=== PATIENT | male | born 1980 | race Caucasian/White ===

== ENCOUNTER 2021-12-23 00:26 | Emergency (ER) | payer SELFPAY ==
[2021-12-23 00:32] VITALS: BP 146/94; PULSE 68; RESP 20; TEMP 36.4; O2SAT 98
--- NOTE | 2021-12-23 03:38 | PC.NURSE ---
PT CALLED AT APPROX 0240 FROM ED WR TO COME BACK TO MAIN ED; NO ANSWER.
== END 2021-12-23 02:40 | disposition left against medical advice (07) ==
DX: R10.9 Unspecified abdominal pain (principal)
CPT/HCPCS: 99199

== ENCOUNTER 2022-01-18 14:36 | Outpatient (CLI) | payer BC, SELFPAY ==
--- NOTE | ~2022-01-18 | XR_ITS ---
XR abdomen/kub 1V 01/18/2022 14:59 Indication: Renal stones Procedure: KUB Comparison: Comparison to multiple prior studies sequentially, with oldest reviewed study dated 11/2009. Findings: There are left renal stones at the lower pole. Bowel gas pattern is nonobstructive. No acut e osseous abnormality. Impression: 1: Left nephrolithiasis. Reviewed, dictated and finalized at location A. Impression: 1: Left nephrolithiasis.
== END 2022-01-18 14:37 | disposition home or self-care (01) ==
LOC: ANHIMG 14:41
PROVIDERS: Visit Provider Urology
DX: N20.0 Calculus of kidney (principal)
CPT/HCPCS: 74018

== ENCOUNTER 2023-01-10 12:15 | Emergency (ER) | payer BC, SELFPAY ==
[2023-01-10] VITALS (16 sets, daily range): BP systolic 136–163; BP diastolic 98–111; PULSE 76–87; RESP 13–19; TEMP 36.8; O2SAT 95–100
--- NOTE | ~2023-01-10 | CT_ITS ---
EXAMINATION: CT abdomen pelvis wo con DATE: 01/10/2023 16:39 INDICATION: Left flank pain. TECHNIQUE: Computed tomography (CT) of the abdomen and pelvis was performed without intravenous contr ast. Automated exposure control and iterative reconstruction technique were employed. The dose-length product was 1870.31 mGy-cm. COMPARISON: CT abdomen and pelvis 06/08/2009 FINDINGS: The visualized portions of the lung bases demonstrate mild atelectasis. No pleural effusion . The heart size is normal. No pericardial effusion. There is diffuse hepatic steatosis with focal sp aring in the gallbladder fossa. The gallbladder, spleen, pancreas, adrenal glands are normal. There i s a 2 mm stone in right kidney. There are 5 stones in left kidney measuring up to 10 mm. The prostate is mildly enlarged. There is a right inguinal hernia containing fat. There is diverticulosis of the colon without evidence of diverticulitis. There are no dilated loops of bowel. The appendix is normal . There are changes of umbilical hernia repair. There is mild aortic atherosclerosis. There is a righ t inguinal hernia containing fat. There are no pathologically enlarged lymph nodes. There is no free intraperitoneal fluid. There is mild thoracic and lumbar spondylosis. IMPRESSION: 1. Bilateral nonobstructing kidney stones. 2. Right inguinal hernia containing fat. Reviewed, dictated and finalized at location A.
[2023-01-10 13:56] LABS: Appearance Urine Clear (Clear); Bilirubin Urine Negative (Negative); Blood Urine Negative (Negative); Color Urine Yellow (Yellow); Glucose Urine UA Negative (Negative); Ketones Urine Trace mg/dL (Negative); Leukocyte Esterase Ur Negative LEU/UL (Negative); Nitrate Urine Negative (Negative); Protein Urine Negative (Negative); pH Urine 5.5 (5.0-9.0)
[2023-01-10 14:31] LABS: Add Urine Microscopic? NO
[2023-01-10 16:27] LABS: Basophils Percent Auto 0.4 % (0.2-1.2); Eosinophils Percent Auto 0.4 % (0-4.4); Hematocrit 47.9 % (42.0-52.0); Hemoglobin 16.4 g/dL (14.0-18.0); Immature Granulocyte Absolute 0.03 K/mm3 (0.00-0.031); Immature Granulocyte Percent A 0.3 % (0-0.5); Lymphocytes Absolute Auto 3.12 K/mm3 (0.9-3.2); Lymphocytes Percent Auto 28.4 % (18.3-44.2); Mean Corpuscular HGB Conc 34.2 g/dl (32-36); Mean Corpuscular Hemoglobin 31.4 pg (26-34); Mean Corpuscular Volume 91.8 fl (80-100); Mean Platelet Volume 9.8 fl (7.4-10.4); Monocytes Absolute Auto 0.9 K/mm3 (0.1-0.6); Monocytes Percent Auto 8.3 % (2.6-8.5); Neutrophils Absolute Auto 6.9 K/mm3 (1.3-6.7); Neutrophils Percent Auto 62.2 % (45.5-73.1); Platelet Count Result 297 k/mm3 (150-375); Red Blood Count 5.22 M/mm3 (4.6-6.20); Red Cell Distribution Width 12.5 % (11.5-14.5)
[2023-01-10 16:35] LABS: Alanine Aminotransferase 52 U/L (6-50); Albumin Level 4.8 g/dL (3.5-5.1); Alkaline Phosphatase 99 U/L (38-126); Anion Gap 10 mmol/L (8-16); Aspartate Amino Transferase 43 U/L (17-59); Bilirubin,Total 0.6 mg/dL (0.2-1.3); Blood Urea Nitrogen 15 mg/dL (9-20); Calcium 9.2 mg/dL (8.4-10.2); Carbon Dioxide 29 mmol/L (22-30); Chloride 101 mmol/L (98-107); Estimated CRCL calculation 158 ml/min; Estimated Glomerular Filt Rate > 60; Glucose 112 mg/dL (65-110); Potassium 3.9 mmol/L (3.4-5.0); Sodium 140 mmol/L (137-145)
--- NOTE | 2023-01-10 16:40 | ED.ABDPAIN ---
HPI - Abdominal Pain General Chief Complaint: Abdominal Pain Stated Complaint: abdominal pain Time Seen by Provider: 01/10/23 15:54 Source: patient Mode of arrival: ambulatory Limitations: no limitations History of Present Illness HPI narrative: This is a 42 year old male that presents to the ER for left flank pain. Ongoing today. Reports longstanding history of kidney stones. Reports this pain feels similar. Denies fever, vomiting, dysuria, hematuria. Related Data Allergies Allergy/AdvReac Type Severity Reaction Status Date / Time peanut Allergy Mild Verified 08/28/09 07:23 Review of Systems Review of Systems: CONSTITUTIONAL: Denies fever GASTROINTESTINAL: Reports abdominal/flank pain. Denies nausea, vomiting GENITOURINARY: Denies dysuria or hematuria. All systems reviewed & are unremarkable except as noted in HPI and below PMFSH Past Medical History Medical History (Updated 01/10/23 @ 18:49 by Ernestine Fountain PA-C) History of kidney stones Social History Social History (Updated 01/10/23 @ 16:43 by Ernestine Fountain PA-C) Smoking status: Never smoker Exam Narrative: GENERAL: Well-appearing, well-nourished, and in no acute distress. HEAD: Normocephalic, atraumatic. EYES: EOMI. CHEST: Clear to auscultation. No respiratory distress. No wheezes rales or rhonchi HEART: Regular rate and rhythm. No murmur heard. Normal peripheral pulses. ABDOMEN: Soft, nontender, nondistended, normal active bowel sounds. No CVA tenderness EXTREMITIES: Normal range of motion. No edema. SKIN: Warm, dry, no rash. NEURO: No focal deficits. Alert and oriented x3. PSYCH: Normal mood and affect Course Course Emergency Course: Patient was updated on workup and agrees with plan of care Vital Signs Vital signs: Vital Signs Temperature 98.3 F 01/10/23 13:07 Pulse Rate 87 01/10/23 13:07 Respiratory Rate 18 01/10/23 13:07 Blood Pressure 156/98 H 01/10/23 13:07 Pulse Oximetry 98 01/10/23 13:07 Oxygen Delivery Room Air 01/10/23 13:07 Temperature 98.3 F 01/10/23 13:07 Pulse Rate 83 01/10/23 17:47 Respiratory Rate 15 01/10/23 17:47 Blood Pressure 163/102 H 01/10/23 17:31 Pulse Oximetry 98 01/10/23 17:47 Oxygen Delivery Room Air 01/10/23 13:07 MDM - Abdominal Pain MDM Narrative Medical decision making narrative: Patient presents to the ER for left flank pain ongoing today. Reporting history of kidney stones. He is afebrile and nontoxic appearing. His vitals are stable. CBC with mild leukocytosis to 11. Metabolic panel without concerning findings. UA without evidence of infection. CT scan of the abdomen and pelvis shows bilateral nonobstructing kidney stones. Patient was updated on work-up. Instructed to have follow-up with his urologist. He was given warnings to return to the ER Differential Diagnosis Differential diagnosis: Likely calculus of kidney, diverticulitis and other (UTI) Lab Data Attestation: I reviewed the patient's lab results. 01/10/23 16:20 01/10/23 16:20 Labs: Lab Results 01/10/23 01/10/23 Range/Units 13:37 16:20 WBC 11.0 H (4.5-10.0) K/mm3 RBC 5.22 (4.6-6.20) M/mm3 Hgb 16.4 (14.0-18.0) g/dL Hct 47.9 (42.0-52.0) % MCV 91.8 (80-100) fl MCH 31.4 (26-34) pg MCHC 34.2 (32-36) g/dl RDW 12.5 (11.5-14.5) % Plt Count 297 (150-375) k/mm3 MPV 9.8 (7.4-10.4) fl Immature Gran % (Auto) 0.3 (0-0.5) % Neut % (Auto) 62.2 (45.5-73.1) % Lymph % (Auto) 28.4 (18.3-44.2) % Morton % (Auto) 8.3 (2.6-8.5) % Eos % (Auto) 0.4 (0-4.4) % Baso % (Auto) 0.4 (0.2-1.2) % Lymph # (Auto) 3.12 (0.9-3.2) K/mm3 Morton # (Auto) 0.9 H (0.1-0.6) K/mm3 Eos # (Auto) 0.0 (0-0.3) K/mm3 Baso # (Auto) 0.0 (0.0-0.1) K/mm3 Abs Immat Gran (auto) 0.03 (0.00-0.031) K/mm3 Absolute Neuts (auto) 6.9 H (1.3-6.7) K/mm3 Absolute Nucleated RBC 0.0 (0.0-0.012) K/mm3 Nucleated RBC %
[2023-01-10] MEDS: ONDANSETRON INJ 4 MG/2 ML VIAL IV PUSH (16:58)
[2023-01-10] MEDS: SODIUM CHLORIDE 0.9% IV 1,000 ML 999 ML IV CONT (16:58)
[2023-01-10] MEDS: MORPHINE SULFATE (*CRX) 2 MG/ML INJ IV PUSH (16:58)
== END 2023-01-10 19:07 | disposition home or self-care (01) ==
PROVIDERS: Emergency Medicine; Emergency Provider Physician Assistant
DX: R10.9 Unspecified abdominal pain (principal); Z87.442 Personal history of urinary calculi
CPT/HCPCS: 36415; 74176; 80053; 81003; 85025; 96361; 96374; 96375; 99284; J2270; J2405; J7030

== ENCOUNTER 2024-08-02 07:17 | Emergency (ER) | payer SELFPAY ==
--- NOTE | ~2024-08-02 | CT_ITS ---
CLINICAL INDICATION: Left flank pain COMPARISON: 01/10/2023. TECHNIQUE: Multiple contiguous axial images of the abdomen and pelvis were performed without the admi nistration of intravenous contrast The dose-length product (DLP) was 759.99 mGy-cm. Automated exposure control and iterative reconstruction technique were employed. FINDINGS/OBSERVATIONS: Visualized lower thorax: The bilateral lung bases are clear. The heart is of normal size, without pericardial effusion. Small hiatal hernia is present. Liver: The liver demonstrates homogeneous attenuation and is not enlarged. Gallbladder and biliary system: The gallbladder is only minimally distended, and otherwise unremarkable. Pancreas: Limited evaluation of the pancreas secondary to the lack of intravenous contrast. Spleen: The spleen demonstrates homogeneous attenuation and is not enlarged. Kidneys: Redemonstration of multiple stones within the left kidney. Within the upper pole, are 2 separate stones, together measuring 8.5 mm (previously measuring 7.2 mm) . 2 stones within the interpolar region measuring approximately 5 mm each. Within the lower pole of the left kidney is a trilobulated group of stones, measuring 11.5 x 8.9 mm. No left-sided hydronephrosis is present. Within the right kidney, is a single stone within the lower pole measuring approximately 4 mm, unchan ged from prior. No right-sided hydronephrosis or hydroureter are present. Adrenal glands: Unremarkable. Gastrointestinal tract: Trace fecal stasis within the colon. Appendix: The air-filled appendix is of normal caliber (axial series, images 119 through 138) Vasculature: Unremarkable. Lymph nodes: Limited evaluation without intravenous contrast. Pelvic structures: The bladder is distended, and otherwise unremarkable. The prostate gland is not enlarged. Body wall and musculoskeletal: Gortex patch repair of a umbilical hernia is appreciated. No significant degenerative disease within the lower thoracic or lumbosacral spine. IMPRESSION: Multiple nonobstructing stones within the bilateral kidneys (as detailed above) without obstructive u ropathy. Reviewed, dictated and finalized at location A. IMPRESSION: Multiple nonobstructing stones within the bilateral kidneys (as detailed above) without obstructive uropathy.
--- NOTE | ~2024-08-02 | XR_ITS ---
XR abdomen/kub 1V 08/02/2024 08:18 Indication: Kidney stones Procedure: KUB Comparison: 01/18/2022 Findings: There are multiple left renal stones. Bowel gas pattern nonobstructive. There are calcifica tions in the pelvis. New since prior examination. Consider bladder stones. No acute osseous abnormali ty. Impression: 1: Left nephrolithiasis. 2: Possible bladder stones. Reviewed, dictated and finalized at location A. Impression: 1: Left nephrolithiasis. 2: Possible bladder stones.
--- OUTSIDE RECORDS SUMMARY | 2024-08-02 07:20 | XMS_ITS | Encounter Summary ---
Author Organization [facility] Address [address] [place] [address] Phone Care Team Providers Care Devulcanizer Loader Name Role Phone Ponce Garcia Primary Care Provider Reason for Visit * Reason Comments Medication Refill Encounter Details Date Type Department Care Team (Late st Contact Info) Description 10/03/2023 Refill [facility] - Primary Care - [place] [address] [place] [address] Ponce Garcia PAC [address] [place] [address] Medication Refill Social History Tobacco Use Types Packs/Day Years Used Date Smoking Tobacco: Never Smokeless Tobacco: Never Alcohol Use Standard Drinks/Week Comments Yes 0 (1 standard drink = 0.6 oz pur e alcohol) rarely-Personal choice [facility] Utilities Answer Date Recorded In the past 12 months has e electric, gas, oil, or water company threatened to shut off services in your home? No 09/15/2023 Social Connection and Isolat ion Panel [NHANES] Answer Date Recorded In a typical week, how many times do you talk on the phone with family, friends, or neighbors? More than three times a week 09/15/2023 How often do you get togethe r with friends or relatives? Once a week 09/15/2023 How often do you attend chur ch or pentecostal services? 1 to 4 times per year 09/15/2023 Do you belong to any clubs o r organizations such as yarsani groups, unions, fraternal or athletic groups, or school groups? Yes 09/15/2023 How often do you attend meet ings of the clubs or organizations you belong to? 1 to 4 times per year 09/15/2023 Are you , , di vorced, , never , or living with a partner? Living with partner 09/15/2023 AUDIT-C Answer Date Recorded Q1: How often do you have a drink containing alc ohol? Monthly or less 09/15/2023 Q2: How many drinks containi ng alcohol do you have on a typical day when you are drinking? 1 or 2 09/15/2023 Q3: How often do you have si x or more drinks on one occasion? Less than monthly 09/15/2023 Overall Financial Resource Strain (CARDIA) Answe r Date Recorded How hard is it for you to pa y for the very basics like food, housing, medical care, and heating? Patient declined 09/15/2023 PHQ-2 Answer Date Recorded Total Score - Questions 1-9 0 08/30 Hunger Vital Sign Answer Date Recorded Within the past 12 months, y ou worried that your food would run out before you got the money to buy more. Never true 09/15/19 24 Within the past 12 months, t he food you bought just didn't last and you didn't have money to get more. Never true 09/15/2023 PRAPARE - Transportation Answer Date Re corded In the past 12 months, has l ack of transportation kept you from medical appointments or from getting medications? No 08/30 In the past 12 months, has l ack of transportation kept you from meetings, work, or from getting things needed for daily living? No 09/15/2023 Housing Stability Vital Sign Answer Marc e Recorded In the last 12 months, was t here a time when you were not able to pay the mortgage or rent on time? No 09/15/2023 In the last 12 months, how many places have you lived? 1 09/15/2023 In the last 12 months, was t here a time when you did not have a steady place to sleep or slept in a penitentiary (including now)? No 09/15/2023 Education Answer Date Recorded What is the highest level of school you have completed or the highest degree you have received? 12th grade 07/31/2021 Sexually Active Control Partners Comments Yes Female Sex and Gender Information Value Date Recorded Sex Assigned at Not on file Legal Sex Male 7:35 PM CDT Gender Identity Not on file Sexual Orientation Straight 03/21/2024 2: 18 PM EMS MANAGER documented as of this encounter Miscellaneous Notes * Telephone Encounter - Ponce Garcia PAC - 10/03/2023 9:55 AM CDT Refill approved. * Telephone Encounter - Robert Dumas RN - 10/03/2023 9:45 AM CDT Medication failed the protocol, provider to review and approve the medication order if appropriate. Requested Prescriptions Pending Prescriptions Disp Refills metaxalone (SKELAXIN) 800 MG Tablet [Pharmacy Med Name: METAXALONE 800MG TABLET] 42 Tablet 0 Sig: TAKE 1 TABLET BY MOUTH 3 TIMES DAILY NEEDED FOR MUSCLE SPASMS OR PAIN. Not Delegated - Muscle Relaxants Protocol Failed - 10/03/2023 9:30 AM Failed - This refill cannot be delegated Passed - Visit with relevant provider in past 12 months or upcoming 90 days Recent Visits Date Type Provider Dept 09/16/23 Office Visit Ponce Garcia PAC [facility] Showing recent visits within past 365 days and meeting all other requirements Future Appointments No visits were found meeting these conditions. Showing future appointments within next 90 days and meeting all other requirements documented in this encounter Plan of Treatment Upcoming Encounters Date Type Department Care Team (Late st Contact Info) Description 10/12/2024 4:30 PM CDT Office Visit [facility] - Primary Care - [place] [id number] [place] [address] Ponce Garcia PAC [address] [place] [address] documented as of this encounter Goals Goal Patient Goal Type Associated Problems Recent Progress Patient-Stated? Author I would like to have lower anxiety Behavioral Health On track(2022 3:41 PM CDT) Yes Mireya Wright, HAND LAMINATOR Note: Goal/Objective: Decreaseanxiet. Anticipated Time Frame for Goal Completion: 8 sessions Goal Reviewed with: patient Readiness to change: Making a change Department associated with goal: [facility] Steps to achieve goal: will attend counseling/psychotherapy sessions at least once monthly, at least 6 sessions, utilizing individual and/or group sessions to express thoughts and feelings. to identify, verbalize and process at least three contributing factors/triggers to anxiety and depression. to identify and verbalize at least three actions/skills to prevent and/or cope with anxiety and depression. to put into action, at least one time weekly, for one month, an action/skill to prevent and or cope with anxiety and depression. Learn ADHD strategies Behavioral Health On track(2022 3:41 PM CDT) No Amee Plaza, HAND LAMINATOR Note: Learn strategies Implement strategies an report back during sessions Medication adherence. documented as of this encounter Visit Diagnoses Diagnosis Chronic right-sided low back pain, unspecified whether sciatica present documented in this encounter Additional Health Concerns Infection Onset Date Last Indicated Resolved Time Respiratory Rule-Out 04/02/2024 04/02/2024 024 12:07 PM EMS MANAGER COVID - 19 04/02/2024 04/02/2024 04/02/2024 12:0 4 PM EMS MANAGER Assessment Noted Time PHQ-9 Depression Total Score: 0 09/16/19 24 4:15 PM CDT documented as of this encounter Care Teams Devulcanizer Loader Relationship Specialty Start Date End Date oPnce aGrcia PAC [address] [place] [address] PCP - General Physician Applications Programmer 09/20/22 documented as of this encounter
--- OUTSIDE RECORDS SUMMARY | 2024-08-02 07:20 | XMS_ITS | Encounter Summary ---
Author Organization [facility] Address [address] [place] [address] Phone Care Team Providers Care Vessel Operator Name Role Phone Ponce Garcia Primary Care Provider Reason for Visit * Reason Comments Medication Refill Encounter Details Date Type Department Care Team (Late st Contact Info) Description 07/16/2023 Refill [facility] - Primary Care - [place] [address] [place] [address] Ponce Garcia PAC [address] [place] [address] Medication Refill Social History Tobacco Use Types Packs/Day Years Used Date Smoking Tobacco: Never Smokeless Tobacco: Never Alcohol Use Standard Drinks/Week Comments Yes 0 (1 standard drink = 0.6 oz pur e alcohol) rarely-Personal choice PHQ-2 Answer Date Recorded Total Score - Questions 1-9 8 06/2021 Education Answer Date Recorded What is the highest level of school you have completed or the highest degree you have received? 12th grade 07/31/2021 Sexually Active Control Partners Comments Yes Female Sex and Gender Information Value Date Recorded Sex Assigned at Not on file Legal Sex Male 7:35 PM CDT Gender Identity Not on file Sexual Orientation Straight 03/21/2024 2: 18 PM RAG SHREDDER documented as of this encounter Miscellaneous Notes * Telephone Encounter - Althea Vazquez, RN - 07/18/2023 9:40 AM CDT Medication(s) refilled and signed per [facility] Chronic Medication Refill Standing Order for Pediatricand Adult Patients. Requested Prescriptions Pending Prescriptions Disp Refills montelukast (SINGULAIR) 10 MG Tablet [Pharmacy Med Name: MONTELUKAST SODIUM 10MG TABLET] 90 Tablet 0 Sig: TAKE 1 TABLET BY MOUTH EVERY EVENING. Leukotriene Inhibitors Protocol Passed - 07/16/2023 9:18 AM Passed - Visit with relevant provider in past 12 months or upcoming 90 days Recent Visits Date Type Provider Dept 09/20/22 Office Visit Ponce Garcia PAC [facility] Showing recent visits within past 365 days and meeting all other requirements Future Appointments Date Type Provider Dept 09/16/23 Appointment Ponce Garcia PAC [facility] Showing future appointments within next 90 days and meeting all other requirements documented in this encounter Plan of Treatment Upcoming Encounters Date Type Department Care Team (Late st Contact Info) Description 10/12/2024 4:30 PM CDT Office Visit [facility] - Primary Care - [place] [address] [place] [id number] Ponce Garcia PAC [address] [place] [address] documented as of this encounter Goals Goal Patient Goal Type Associated Problems Recent Progress Patient-Stated? Author I would like to have lower anxiety Behavioral Health On track(2022 3:41 PM CDT) Yes Mireya Wright, DISTANCE LEARNING TECHNICIAN Note: Goal/Objective: Decreaseanxiet. Anticipated Time Frame for Goal Completion: 8 sessions Goal Reviewed with: patient Readiness to change: Making a change Department associated with goal: [facility] Steps to achieve goal: [...] track(2022 3:41 PM CDT) No Amee Plaza, DISTANCE LEARNING TECHNICIAN Note: Learn strategies Implement strategies an report back during sessions Medication adherence. documented as of this encounter Visit Diagnoses Diagnosis Mild intermittent extrinsic asthma without complication documented in this encounter Additional Health Concerns Infection Onset Date Last Indicated Resolved Time Respiratory Rule-Out 04/02/2024 04/02/2024 024 12:07 PM RAG SHREDDER COVID - 19 04/02/2024 04/02/2024 04/02/2024 12:0 4 PM RAG SHREDDER Assessment Noted Time PHQ-9 Depression Total Score: 8 06/04/19 22 3:00 PM RAG SHREDDER documented as of this encounter Care Teams Vessel Operator Relationship Specialty Start Date End Date Ponce Garcia, PAC [address] [place] [phone] PCP - General Physician Die Maker Electronic 09/20/22 documented as of this encounter
--- OUTSIDE RECORDS SUMMARY | 2024-08-02 07:20 | XMS_ITS | Encounter Summary ---
Author Organization [facility] Address [address] [place] [address] Phone Care Team Providers Care Utility Inspector Name Role Phone Ponce Garcia Primary Care Provider Reason for Visit * Reason Comments Medication Refill Encounter Details Date Type Department Care Team (Late st Contact Info) Description 08/17/2023 Refill [facility] - Primary Care - [place] [address] [place] [address] Ponce Garcia PAC [address] [place] [address] Medication Refill Social History Tobacco [...] Sexual Orientation Straight 03/21/2024 2: 18 PM INDUSTRIAL/ORGANIZATIONAL PSYCHOLOGIST documented as of this encounter Miscellaneous Notes * Telephone Encounter - Ponce Garcia PAC - 08/17/2023 12:38 PM CDT Refill approved. * Telephone Encounter - Mindi Arambula RN - 08/17/2023 8:56 AM CDT Medication failed the protocol, provider to review and approve the medication order if appropriate. Requested Prescriptions Pending Prescriptions Disp Refills metaxalone (SKELAXIN) 800 MG Tablet [Pharmacy Med Name: METAXALONE 800MG TABLET] 42 Tablet 0 Sig: TAKE 1 TABLET BY MOUTH 3 TIMES DAILY NEEDED FOR MUSCLE SPASMS OR PAIN. Not Delegated - Muscle Relaxants Protocol Failed - 08/17/2023 8:56 AM Failed - This refill cannot be delegated Passed - Visit with relevant provider in past 12 months or upcoming 90 days Recent Visits Date Type Provider Dept 09/20/22 Office Visit Ponce Garcia PAC [facility] Showing recent visits within past 365 days and meeting all other requirements Future Appointments Date Type Provider Dept 09/16/23 Appointment Ponce Garcia PAC [facility] Showing future appointments within next 90 days and meeting all other requirements documented in this encounter Plan of Treatment Upcoming Encounters Date Type Department Care Team (Late st Contact Info) Description 10/12/2024 4:30 PM CDT Office Visit [facility] - Primary Care - [address] [place] [address] Ponce Garcia PAC [address] [place] [address] documented as of this encounter Goals Goal Patient Goal Type Associated Problems Recent Progress Patient-Stated? Author I would like to have lower anxiety Behavioral Health On track(2022 3:41 PM CDT) Yes Mireya Wright, MOISTURE METER OPERATOR Note: Goal/Objective: Decreaseanxiet. Anticipated Time Frame for Goal Completion: 8 sessions Goal Reviewed with: patient Readiness to change: Making a change Department associated with goal: [facility] Steps to achieve goal: [...] track(2022 3:41 PM CDT) No Amee Plaza, MOISTURE METER OPERATOR Note: Learn strategies Implement strategies an report back during sessions Medication adherence. documented as of this encounter Visit Diagnoses Diagnosis Chronic right-sided low back pain, unspecified whether sciatica present documented in this encounter Additional Health Concerns Infection Onset Date Last Indicated Resolved Time Respiratory Rule-Out 04/02/2024 04/02/2024 024 12:07 PM INDUSTRIAL/ORGANIZATIONAL PSYCHOLOGIST COVID - 19 04/02/2024 04/02/2024 04/02/2024 12:0 4 PM INDUSTRIAL/ORGANIZATIONAL PSYCHOLOGIST Assessment Noted Time PHQ-9 Depression Total Score: 8 06/04/19 22 3:00 PM INDUSTRIAL/ORGANIZATIONAL PSYCHOLOGIST documented as of this encounter Care Teams Utility Inspector Relationship Specialty Start Date End Date Ponce Garcia, PAC [address] [place] [address] PCP - General Physician Office Clinician 09/20/22 documented as of this encounter
--- OUTSIDE RECORDS SUMMARY | 2024-08-02 07:20 | XMS_ITS | Encounter Summary ---
Author Organization [facility] Address [address] [place] [address] Phone Care Team Providers Care Light Technician Name Role Phone Ponce Garcia Primary Care Provider Reason for Visit * Reason Comments Medication Refill Encounter Details Date Type Department Care Team (Late st Contact Info) Description 09/29/2023 Refill [facility] - Primary Care - [place] [address] [place] [address] Ponce Garcia PAC [address] [place] [address] Medication Refill Social History Tobacco Use Types Packs/Day Years Used Date Smoking Tobacco: Never Smokeless Tobacco: Never Alcohol Use Standard Drinks/Week Comments Yes 0 (1 standard drink = 0.6 oz pur e alcohol) rarely-Personal choice [facility] Utilities Answer Date Recorded In the [...] any clubs o r organizations such as sikh groups, unions, fraternal or athletic groups, or [...] place to sleep or slept in a long term (including now)? No 09/15/2023 Education Answer Date [...] Sexual Orientation Straight 03/21/2024 2: 18 PM SECURITY SYSTEM INSTALLER documented as of this encounter Miscellaneous Notes * Telephone Encounter - Ponce Garcia PAC - 09/29/2023 8:58 AM CDT Refill approved. * Telephone Encounter - Robert Dumas RN - 09/29/2023 8:21 AM CDT Medication failed the protocol, provider to review and approve the medication order if appropriate. Requested Prescriptions Pending Prescriptions Disp Refills atomoxetine (STRATTERA) 25 MG Capsule [Pharmacy Med Name: ATOMOXETINE HYDROCHLORIDE 25MG CAPSULE] 90 Capsule 2 Sig: TAKE 1 CAPSULE BY MOUTH DAILY. Not Delegated - Off Protocol Failed - 09/29/2023 8:20 AM Failed - This refill cannot be delegated Passed - Visit with relevant provider in past 12 months or upcoming 90 days Recent Visits Date Type Provider Dept 09/16/23 Office Visit Ponce Garcia PAC [facility] Showing recent visits within past 365 days and meeting all other requirements Future Appointments No visits were found meeting these conditions. Showing future appointments within next 90 days and meeting all other requirements documented in this encounter Plan of Treatment Upcoming Encounters Date Type Department Care Team (Late st Contact Info) Description 10/12/2024 4:30 PM CDT Office Visit [facility] - Primary Care - [place] [address] [place] [address] Ponce Garcia, PAC [address] [place] [address] documented as of this encounter Goals Goal Patient Goal Type Associated Problems Recent Progress Patient-Stated? Author I would like to have lower anxiety Behavioral Health On track(2022 3:41 PM CDT) Yes Mireya Wright, MOLDER HELPER Note: Goal/Objective: Decreaseanxiet. Anticipated Time Frame for Goal Completion: 8 sessions Goal Reviewed with: patient Readiness to change: Making a change Department associated with goal: [facility] Steps to achieve goal: [...] track(2022 3:41 PM CDT) No Amee Plaza, MOLDER HELPER Note: Learn strategies Implement strategies an report back during sessions Medication adherence. documented as of this encounter Visit Diagnoses Not on filedocumented in this encounter Additional Health Concerns Infection Onset Date Last Indicated Resolved Time Respiratory Rule-Out 04/02/2024 04/02/2024 024 12:07 PM SECURITY SYSTEM INSTALLER COVID - 19 04/02/2024 04/02/2024 04/02/2024 12:0 4 PM SECURITY SYSTEM INSTALLER Assessment Noted Time PHQ-9 Depression Total Score: 0 09/16/19 24 4:15 PM CDT documented as of this encounter Care Teams Light Technician Relationship Specialty Start Date End Date Ponce Garcia, PAC [address] [place] [address] PCP - General Physician Services Clerk 09/20/22 documented as of this encounter
--- OUTSIDE RECORDS SUMMARY | 2024-08-02 07:20 | XMS_ITS | Encounter Summary ---
Author Organization [facility] Address [address] [place] [address] Phone Care Team Providers Care Employment Program Representative Name Role Phone Ponce Garcia Primary Care Provider [phone] Reason for Visit * Reason Comments Medication Refill Encounter Details Date Type Department Care Team (Late st Contact Info) Description 07/13/2023 Refill [facility] - Primary Care - [place] [address] [place] [address] Ponce Garcia PAC [address] [place] [address] Medication Refill Social History Tobacco [...] Sexual Orientation Straight 03/21/2024 2: 18 PM RAILWAY SIGNAL ELECTRICIAN documented as of this encounter Miscellaneous Notes * Telephone Encounter - Ponce Garcia PAC - 07/13/2023 11:19 AM CDT Refill approved. * Telephone Encounter - Robert Dumas RN - 07/13/2023 11:07 AM CDT Medication failed the protocol, provider to review and approve the medication order if appropriate. Requested Prescriptions Pending Prescriptions Disp Refills DULoxetine (CYMBALTA) [address] Particles [Pharmacy Med Name: DULOXETINE HYDROCHLORIDE 20MG CAPSULE DR PART] 90 Capsule 0 Sig: TAKE 1 CAPSULE BY MOUTH NIGHTLY. SNRI (6 Month Refill Only) Protocol Failed - 07/13/2023 11:01 AM Failed - Has an encounter in the past 6 months with a depression or anxiety visit diagnosis Passed - Visit with relevant provider in past 6 months or upcoming 90 days Recent Visits No visits were found meeting these conditions. Showing recent visits within past 182 days and meeting all other requirements Future Appointments Date Type Provider Dept 09/16/23 Appointment Ponce Garcia PAC [facility] Showing future appointments within next 90 days and meeting all other requirements Passed - Patient has established therapy with Serotonin-Norepinephrine Reuptake Inhibitors for at least 6 months documented in this encounter Plan of Treatment Upcoming Encounters Date Type Department Care Team (Late st Contact Info) Description 10/12/2024 4:30 PM CDT Office Visit [facility] - Primary Care - [place] [address] [place] [address] Ponce Garcia PAC [address] [place] [address] documented as of this encounter Goals Goal Patient Goal Type Associated Problems Recent Progress Patient-Stated? Author I would like to have lower anxiety Behavioral Health On track(2022 3:41 PM CDT) Yes Mireya Wright, GROUP HOME COUNSELOR Note: Goal/Objective: Decreaseanxiet. Anticipated Time Frame for Goal Completion: 8 sessions Goal Reviewed with: patient Readiness to change: Making a change Department associated with goal: [facility] Steps to achieve [...] track(2022 3:41 PM CDT) No Amee Plaza, GROUP HOME COUNSELOR Note: Learn strategies Implement strategies an report back during sessions Medication adherence. documented as of this encounter Visit Diagnoses Diagnosis Generalized anxiety disorder documented in this encounter Additional Health Concerns Infection Onset Date Last Indicated Resolved Time Respiratory Rule-Out 04/02/2024 04/02/2024 024 12:07 PM RAILWAY SIGNAL ELECTRICIAN COVID - 19 04/02/2024 04/02/2024 04/02/2024 12:0 4 PM RAILWAY SIGNAL ELECTRICIAN Assessment Noted Time PHQ-9 Depression Total Score: 8 06/04/19 22 3:00 PM RAILWAY SIGNAL ELECTRICIAN documented as of this encounter Care Teams Employment Program Representative Relationship Specialty Start Date End Date Ponce Garcia, PAC [address] [place] [address] PCP - General Physician Plasterer Rough 09/20/22 documented as of this encounter
--- OUTSIDE RECORDS SUMMARY | 2024-08-02 07:20 | XMS_ITS | Encounter Summary ---
Author Organization [facility] Address [address] [place] [address] Phone Care Team Providers Care Crime Scene Examiner Name Role Phone Ponce Garcia Primary Care Provider [phone] Reason for Visit * Reason Comments Medication Refill Encounter Details Date Type Department Care Team (Late st Contact Info) Description 07/01/2023 Refill [facility] - Primary Care - [place] [address] [place] [address] Ponce Garcia PAC [address] [place] [address] Medication Refill Social History Tobacco [...] Sexual Orientation Straight 03/21/2024 2: 18 PM CUSTOMER TRAINER documented as of this encounter Miscellaneous Notes * Telephone Encounter - Ponce Garcia PAC - 07/01/2023 9:39 AM CST Refill approved. OMER TRAINER * Telephone Encounter - Robert Dumas RN - 07/01/2023 9:23 AM CST Medication failed the protocol, provider to review and approve the medication order if appropriate. Requested Prescriptions Pending Prescriptions Disp Refills metaxalone (SKELAXIN) 800 MG Tablet [Pharmacy Med Name: METAXALONE 800MG TABLET] 42 Tablet 0 Sig: TAKE 1 TABLET BY MOUTH 3 TIMES DAILY NEEDED FOR MUSCLE SPASMS OR PAIN. Not Delegated - Muscle Relaxants Protocol Failed - 07/01/2023 8:47 AM Failed - This refill cannot be delegated Passed - Visit with relevant provider in past 12 months or upcoming 90 days Recent Visits Date Type Provider Dept 09/20/22 Office Visit Ponce Garcia PAC [facility] Showing recent visits within past 365 days and meeting all other requirements Future Appointments No visits were found meeting these conditions. Showing future appointments within next 90 days and meeting all other requirements OMER TRAINER documented in this encounter Plan of Treatment Upcoming Encounters Date Type Department Care Team (Late st Contact Info) Description 10/12/2024 4:30 PM CDT Office Visit [facility] - Primary Care - [place] [address] [place] [address] Ponce Garcia PAC [address] [place] [address] documented as of this encounter Goals Goal Patient Goal Type Associated Problems Recent Progress Patient-Stated? Author I would like to have lower anxiety Behavioral Health On track(2022 3:41 PM CDT) Yes Mireya Wright, BOX BUILDER Note: Goal/Objective: Decreaseanxiet. Anticipated Time Frame for Goal Completion: 8 sessions Goal Reviewed with: patient Readiness to change: Making a change Department associated with goal: [facility] Steps to achieve [...] track(2022 3:41 PM CDT) No Amee Plaza, BOX BUILDER Note: Learn strategies Implement strategies an report back during sessions Medication adherence. documented as of this encounter Visit Diagnoses Diagnosis Chronic right-sided low back pain, unspecified whether sciatica present documented in this encounter Additional Health Concerns Infection Onset Date Last Indicated Resolved Time Respiratory Rule-Out 04/02/2024 04/02/2024 024 12:07 PM CUSTOMER TRAINER COVID - 19 04/02/2024 04/02/2024 04/02/2024 12:0 4 PM CUSTOMER TRAINER Assessment Noted Time PHQ-9 Depression Total Score: 8 06/04/19 22 3:00 PM CUSTOMER TRAINER documented as of this encounter Care Teams Crime Scene Examiner Relationship Specialty Start Date End Date Ponce Garcia, PAC [address] [place] [id number] PCP - General Physician Fruit Harvest Worker 09/20/22 documented as of this encounter
--- OUTSIDE RECORDS SUMMARY | 2024-08-02 07:20 | XMS_ITS | Encounter Summary ---
Author Organization [facility] Address [address] [place] [address] Phone Care Team Providers Care Land Law Examiner Name Role Phone Yamile Mallory APRN, CNP Primary Care Provider Ponce Garcia Primary Care Provider [phone] Reason for Visit * Reason Comments Medication Refill Encounter Details Date Type Department Care Team (Late st Contact Info) Description 09/13/2022 Refill [facility] - Primary Care - [place] [address] [place] [address] Ponce Garcia PAC [address] [place] [address] Medication Refill Social History Tobacco [...] Sexual Orientation Straight 03/21/2024 2: 18 PM DISPATCHER CHIEF OIL COVID-19 Exposure Response Date Recorded In the last 10 days, have yo u been in contact with someone who was confirmed or suspected to have Coronavirus/COVID-19? No / Unsure 09/14/2022 3:16 PM CDT documented as of this encounter Miscellaneous Notes * Telephone Encounter - Ponce Garcia PAC - 09/13/2022 10:28 AM CDT Rx request approved. * Telephone Encounter - Renée Kaufman RN - 09/13/2022 8:50 AM CDT Patient set up a [facility] appointment with Ponce for 09/20/22. Medication failed the protocol, provider to review and approve the medication order if appropriate. Requested Prescriptions Pending Prescriptions Disp Refills metaxalone (SKELAXIN) 800 MG Tablet [Pharmacy Med Name: METAXALONE 800MG TABLET] 42 Tablet 0 Sig: TAKE 1 TABLET BY MOUTH 3 TIMES DAILY NEEDED FOR MUSCLE SPASMS OR PAIN. Not Delegated - Muscle Relaxants Protocol Failed - 09/13/2022 8:25 AM Failed - This refill cannot be delegated Passed - Visit with relevant provider in past 12 months or upcoming 90 days Recent Visits Date Type Provider Dept 11/06/21 Telemedicine Yamile Mallory APRN, HERBICIDE SERVICE SALES REPRESENTATIVE [facility] 09/23/21 Office Visit Yamile Mallory APRN, HERBICIDE SERVICE SALES REPRESENTATIVE [facility] Showing recent visits within past 365 days and meeting all other requirements Future Appointments Date Type Provider Dept 09/20/22 Appointment Ponce Garcia PAC [facility] Showing future appointments within next 90 days and meeting all other requirements documented in this encounter Plan of Treatment Upcoming Encounters Date Type Department Care Team (Late st Contact Info) Description 10/12/2024 4:30 PM CDT Office Visit [facility] - Primary Care - [place] [address] [place] [address] Ponce Garcia, BRANDIE [address] [place] [address] documented as of this encounter Goals Goal Patient Goal Type Associated Problems Recent Progress Patient-Stated? Author I would like to have lower anxiety Behavioral Health On track(2022 3:41 PM CDT) Yes Mireya Wright, ANIMAL BEHAVIOURIST Note: Goal/Objective: Decreaseanxiet. Anticipated Time Frame for Goal Completion: 8 sessions Goal Reviewed with: patient Readiness to change: Making a change Department associated with goal: [facility] Steps to achieve [...] track(2022 3:41 PM CDT) No Amee Plaza, ANIMAL BEHAVIOURIST Note: Learn strategies Implement strategies an report back during sessions Medication adherence. documented as of this encounter Visit Diagnoses Diagnosis Chronic right-sided low back pain, unspecified whether sciatica present documented in this encounter Additional Health Concerns Infection Onset Date Last Indicated Resolved Time Respiratory Rule-Out 04/02/2024 04/02/2024 024 12:07 PM DISPATCHER CHIEF OIL COVID - 19 04/02/2024 04/02/2024 04/02/2024 12:0 4 PM DISPATCHER CHIEF OIL Assessment Noted Time PHQ-9 Depression Total Score: 8 06/04/19 22 3:00 PM DISPATCHER CHIEF OIL documented as of this encounter Care Teams Land Law Examiner Relationship Specialty Start Date End Date Yamile Mallory, RFID SYSTEMS ARCHITECT, HERBICIDE SERVICE SALES REPRESENTATIVE [address] [place] [id number] PCP - General Advanced Practice Nurse 09/23/21 Ponce Garcia, PAC [address] [place] [address] PCP - General Physician Supervising Chef 09/20/22 documented as of this encounter
--- OUTSIDE RECORDS SUMMARY | 2024-08-02 07:20 | XMS_ITS | Clinical Summary ---
Author Organization [facility] Address [address] [place] [address] Phone Care Team Providers Care Senior Support Engineer Name Role Phone Ponce Garcia Primary Care Provider [phone] Allergies Active Allergy Reactions Criticality Noted Date Comments Morphine And Codeine Itching Low 12/22/2020 Reaction: Itching, Oxycodone Itching 12/22/2020 Reaction: Itching, Peanut Allergen Powder-Dnfp Anaphylaxis High 021 Medications busPIRone (BUSPAR) 10 MG Tablet Take 1 Tablet by mouth 3 times daily. 270 Tablet 1 4 Active glimepiride (AMARYL) 2 MG TabletIndications: Type 2 diabetes mellitus without complication, without long-term current use of insulin Take 1 Tablet by mouth every morning. 90 Tablet 3 4 Active Blood Glucose Monitoring Suppl Device DX: E11.9, tests daily 1 Each 4 Active Glucose Blood Strip DX: E11.9. tests daily. 100 Strip 3 4 Active Lancets Misc DX: E11.9. Tests daily. 100 Lancet . 3 4 Active albuterol (ProAir HFA) 108 (90 Base) MCG/ACT Aerosol SolutionIndication s:Acute cough,Bronchitis,W heezing take 2 Puffs by inhalation every 4 hours as needed for Wheezing or Cough. 18 g 4 Active montelukast (SINGULAIR) 10 MG TabletIndications: Mild intermittent extrinsic asthma without complication Take 1 Tablet by mouth every evening. 90 Tablet 2 4 Active metFORMIN (GLUCOPHAGE) 500 MG TabletIndications: Type 2 diabetes mellitus without complication, without long-term current use of insulin Take 1 Tablet by mouth 2 times daily (with meals). 180 Tablet 2 4 Active atorvastatin (LIPITOR) 20 MG TabletIndications: Hyperlipidemia, unspecified hyperlipidemia type TAKE 1 TABLET BY MOUTH DAILY. 90 Tablet 2 5 Active metaxalone (SKELAXIN) 800 MG TabletIndications: Chronic right-sided low back pain, unspecified whether sciatica present TAKE 1 TABLET BY MOUTH 3 TIMES DAILY NEEDED FOR MUSCLE SPASMS OR PAIN. 42 Tablet 4 5 Active meloxicam (MOBIC) 15 MG TabletIndications: Arthralgia of both hands TAKE 1 TABLET BY MOUTH DAILY. 90 Tablet 1 5 Active allopurinol (ZYLOPRIM) 300 MG Tablet TAKE ONE TABLET BY MOUTH EVERY DAY 90 Tablet 1 5 Active atomoxetine (STRATTERA) 25 MG Capsule TAKE 1 CAPSULE BY MOUTH DAILY. 90 Capsule 1 5 Active Active Problems Problem Noted Date Diagnosed Date Type 2 diabetes mellitus wit hout complication, without long-term current use of insulin 04/13/2024 Hyperlipidemia 04/13/2024 Generalized anxiety disorder 01/06/2022 ADHD (attention deficit hype ractivity disorder), combined type 01/06/2022 Arthralgia of both hands 06/13/2018 Calculus of kidney 03/31/2016 Gout 2016 Overview (09/23/2021): Gout Mild persistent asthma with acute exacerbation 0 2016 Overview (09/23/2021): Acute exacerbation of mild persistent asthma Exomphalos 10/30/2015 Overview (09/23/2021): Umbilical hernia Allergy-induced asthma Encounters Date Type Department Care Team Description 07/25/2024 Refill [facility] [place] [address] [place] [address] Ponce Garcia, PAC Medication Refill 07/02/2024 Refill [facility] [place] [address] [place] [address] Ponce Garcia, PAC Medication Refill 06/25/2024 Refill [facility] [place] [address] [place] [address] Ponce Garcia, PAC Medication Refill 06/08/2024 Refill [facility] [place] [address] [place] [address] Ponce Garcia, PAC Medication Refill 05/08/2024 Refill [facility] [place] [address] [place] [address] Ponce Garcia, PAC Medication Refill from Last 3 Months Family History Medical History Relation Name Comments High Cholesterol Father Justice Hypertension Father Justice Cancer Maternal Grandmother lung Anxiety disorder Mother Halima Depression Mother Halima Diabetes Mother Halima type II Rheumatoid Arthritis Mother Halima Anxiety disorder Sister Renée Depression Sister Renée Diabetes Sister Renée type II Relation Name Status Comments Father Justice Alive Maternal Grandfather Maternal Grandmother Mother Halima Alive Paternal Grandfather Paternal Grandmother Sister Renée Alive Social History Tobacco Use Types Packs/Day Years Used Date Smoking Tobacco: Never Smokeless Tobacco: Never Tobacco Cessation:Counseling Given: Not Answered Alcohol Use Standard Drinks/Week Comments Yes 0 (1 standard drink = 0.6 oz pur e alcohol) rarely-Personal choice [facility] Utilities Answer Date Recorded In the past 12 months has [employer], gas, oil, or water company threatened to shut off services in your home? No 03/21/2024 Social Connection and Isolat ion Panel [NHANES] Answer Date Recorded In a typical week, how many times do you talk on the phone with family, friends, or neighbors? More than three times a week 03/21/2024 How often do you get togethe r with friends or relatives? Three times a week 03/21/2024 How often do you attend chur ch or confucianism services? More than 4 times per year 03/21/2024 Do you belong to any clubs o r organizations such as christianity groups, unions, fraternal or athletic groups, or school groups? Yes 03/21/2024 How often do you attend meet ings of the clubs or organizations you belong to? Patient declined 03/21/2024 Are you , , di vorced, , never , or living with a partner? 03/21/2024 AUDIT-C Answer Date Recorded Q1: How often do you have a drink containing alc ohol? Monthly or less 03/21/2024 Q2: How many drinks containi ng alcohol do you have on a typical day when you are drinking? 1 or 2 03/21/2024 Q3: How often do you have si x or more drinks on one occasion? Never 03/21/2024 Overall Financial Resource Strain (CARDIA) Answe r Date Recorded How hard is it for you to pa y for the very basics like food, housing, medical care, and heating? Patient declined 03/21/2024 PHQ-2 Answer Date Recorded Total Score - Questions 1-9 0 12/0 06/2023 [facility] - Occupational Stress Questionnaire Answer Date Recorded Do you feel stress - tense, restless, nervous, or anxious, or unable to sleep at night because your mind is troubled all the time - these days? Patient declined 03/21/2024 Exercise Vital Sign Answer Date Recorde d On average, how many days pe r week do you engage in moderate to strenuous exercise (like a brisk walk)? Patient declined On average, how many minutes do you engage in exercise at this level? Patient declined 03/21/2024 Hunger Vital Sign Answer Date Recorded Within the past 12 months, y ou worried that your food would run out before you got the money to buy more. Patient declined Within the past 12 months, t he food you bought just didn't last and you didn't have money to get more. Patient declined PRAPARE - Transportation Answer Date Re corded In the past 12 months, has l ack of transportation kept you from medical appointments or from getting medications? Patient declined 03/21/2024 In the past 12 months, has l ack of transportation kept you from meetings, work, or from getting things needed for daily living? Patient declined 03/21/2024 Housing Stability Vital Sign Answer Marc e [...] place to sleep or slept in a senior care (including now)? No 09/15/2023 Housing Stability Vital Sign Answer Marc e Recorded In the last 12 months, was t here a time when you were not able to pay the mortgage or rent on time? Patient declined 03/21/20 24 Number of Times Moved in the Last Year Not on fi le 03/21/2024 At any time in the past 12 m [facility], were you homeless or living in a senior care (including now)? Patient declined 03/21/2024 Education Answer Date Recorded What is the highest level of school you have completed or the highest degree you have received? 12th grade 07/31/2021 Sexually Active Control Partners Comments Yes Female Sex and Gender Information Value Date Recorded Sex Assigned at Not on file Legal Sex Male 7:35 PM CDT Gender Identity Not on file Sexual Orientation Straight 03/21/2024 2: 18 PM REFUELING RAMPMAN Last Filed Vital Signs Vital Sign Reading Time Taken Comments Blood Pressure 132/88 04/13/2024 4:01 PM REFUELING RAMPMAN Pulse 82 04/13/2024 4:01 PM REFUELING RAMPMAN Temperature 37.7 C (99.8 F) 04/13/2024 4:01 PM REFUELING RAMPMAN Respiratory Rate 20 04/13/2024 4:01 PM REFUELING RAMPMAN Oxygen Saturation 98% 04/13/2024 4:01 PM REFUELING RAMPMAN Inhaled Oxygen Concentration - - Weight 141.1 kg (311 lb) 04/13/2024 4:01 PM REFUELING RAMPMAN Height 188 cm (6' 2 ) 09/20/2022 4:10 PM CDT Body Mass Index 39.93 09/20/2022 4:10 PM CDT Plan of Treatment Upcoming Encounters Date Type Department Care Team (Late st Contact Info) Description 10/12/2024 4:30 PM CDT Office Visit [facility] - [place] [address] [place] [address] Ponce Garcia, PAC [address] [place] [address] Health Maintenance Due Date Last Done Comments Diabetes: Eye Exam 1981 Diabetes: Foot Exam 1981 TdaP Immunization 1981 Hepatitis B Immunization (1 of 3 - 19+ 3-dose series) 01/16/2000 Pneumococcal Immunization Combined (1 of 2 - PCV) 01/16/2000 Diabetes: Nephropathy Screening 10/30/2023 10/29/2022, 10/31/2021, 12/27/2020 Influenza Immunization (#1) 2024 Diabetes: Hemoglobin A1c 09/14/2024 024, 11/05/2023, 02/05/2023, Additional history exists Respiratory Syncytial Virus (RSV) Immunization (Adult) (1 - 1-dose 75+ series) 01/16/2056 Hepatitis C Virus (HCV) Screening Completed 12/27/2020 Meningococcal Immunization (ACWY) Aged Out No longer eligible based on patient's age to complete this topic Rotavirus Immunization Aged Out No lo nger eligible based on patient's age to complete this topic SARS-COV-2 Immunization Discontinued Goals Goal Patient Goal Type Associated Problems Recent Progress Patient-Stated? Author I would like to have lower anxiety Behavioral Health On track(2022 3:41 PM CDT) Yes Mireya Wright, CREATIVE SERVICES DESIGNER Note: Goal/Objective: Decreaseanxiet. Anticipated Time Frame for Goal Completion: 8 sessions Goal Reviewed with: patient Readiness to change: Making a change Department associated with goal: [facility] Steps to achieve [...] track(2022 3:41 PM CDT) No Amee Plaza, CREATIVE SERVICES DESIGNER Note: Learn strategies Implement strategies an report back during sessions Medication adherence. Procedures Procedure Name Priority Date/Time Associated Diagnosis Comments HEMOGLOBIN A1C W/ ESTIMATED GLUCOSE Routine 03/17/2024 9:23 AM REFUELING RAMPMAN Type 2 diabetes mellitus without complication, without long-term current use of insulin (HCC) CMP (COMPREHENSIVE METABOLIC PANEL) Routine 10/29/2022 8:01 AM CDT Hyperlipidemia, unspecified hyperlipidemia type HEPATITIS C ANTIBODY Routine 12/27/2020 9:28 AM CDT Preventative health care (Adult) from Last 3 Months or Most Recently Relevant to Health Maintenance Results * (ABNORMAL) HEMOGLOBIN A1C W/ ESTIMATED GLUCOSE (03/17/2024 9:23 AM REFUELING RAMPMAN) HGB-A1C 6.8(H) 4.0 - 6.0 % 03/17/2024 10:12 AM REFUELING RAMPMAN [facility] Est Average Glucose 148.5 mg/dL 03/17/2024 10:12 AM REFUELING RAMPMAN [facility] Blood Venipuncture / Unknown 03/17/2024 9:23 AM REFUELING RAMPMAN 03/17/2024 10:00 AM REFUELING RAMPMAN Narrative [facility] - 03/17/2024 10:12 AM REFUELING RAMPMAN HEMOGLOBIN A1C: DIABETIC PATIENTS: WELL-CONTROLLED: 6.2 - 7.0 INTERMEDIATE WELL-CONTROLLED: 7.0 - 9.0 POORLY-CONTROLLED: >9.0 us Opnce Tra Garcia PAC CHEMISTRY ORDERABLES Final R esult [facility] [address] [place] [address] * (ABNORMAL) CMP (COMPREHENSIVE METABOLIC PANEL) (10/29/2022 8:01 AM CDT) SODIUM 139 136 - 144 mmol/L 10/29/2022 1:13 PM CDT [facility] POTASSIUM 4.0 3.5 - 5.1 mmol/L 10/29/2022 1:13 PM CDT [facility] CHLORIDE 98(L) 100 - 110 mmol/L 10/29/2022 1:13 PM CDT [facility] CO2, VENOUS 26 22 - 32 mmol/L 10/29/2022 1:13 PM CDT [facility] ANION GAP 19.0 8.0 - 20.0 mmol/L 10/29/2022 1:13 PM CDT [facility] GLUCOSE 128(H) 70 - 99 mg/dL 10/29/2022 1:13 PM CDT [facility] BUN 9 6 - 20 mg/dL 10/29/2022 1:13 PM CDT [facility] CREATININE, BLOOD 0.72(L) 0.80 - 1.30 mg/dL 10/29/2022 1:13 PM CDT [facility] BUN/CREATININE RATIO 13 12 - 20 ratio 10/29/2022 1:13 PM CDT [facility] TOTAL PROTEIN 7.8 6.0 - 8.3 g/dL 10/29/2022 1:13 PM CDT [facility] ALBUMIN 4.5 3.5 - 5.2 g/dL 10/29/2022 1:13 PM CDT [facility] Comment: The colormetric methods used for the determination of Albumin may lead to falsely elevated test results in patients suffering from renal failure or insufficiency due to interference with other proteins. A/G RATIO 1.4 1.0 - 2.0 10/29/2022 1:13 PM CDT [facility] CALCIUM 10.2 8.9 - 10.3 mg/dL 10/29/2022 1:13 PM CDT [facility] T BILI 0.4 <=1.2 mg/dL 10/29/2022 1:13 PM CDT [facility] SGOT (AST) 31 <=40 U/L 10/29/2022 1:13 PM CDT [facility] SGPT (ALT) 42(H) <=41 U/L 10/29/2022 1:13 PM CDT [facility] ALKALINE PHOSPHATASE 109 40 - 130 U/L 10/29/2022 1:13 PM CDT [facility] IS THE PATIENT REQUIRED TO BE FASTING? No 10/29/2022 1:13 PM CDT [facility] GFR, ESTIMATED >60 >=60 10/29/2022 1:13 PM CDT [facility] Comment: Creatinine Clearance is the preferred criteria for selecting drug dose adjustments in renally impaired patients. The GFR is provided as additional pertinent clinical information. GFR is reported in mL/min/1.73 sq m. Calculation based on the Chronic Kidney Disease Epidemiology Collaboration (CKD- EPI) equation refit without adjustment for race. GFR, EST. >60 >=60 023 1:13 PM CDT [facility] GFR, EST. NONAFRICAN >60 >=60 10/29/2022 1:13 PM CDT [facility] Blood Venipuncture / Unknown 10/29/2022 8:01 AM CDT 10/29/2022 12:07 PM CDT us Yamile Mallory APRN, CNP CHEMISTRY ORDERABLES Fi nal Result [facility] [address] [place] [address] * HEPATITIS C ANTIBODY (12/27/2020 9:28 AM CDT) hepatitis C antibody 0.10 <1 S/CO [facility] ARCH [id number] B 12/27/2020 3:42 PM CDT [facility] Comment: Signal/Cutoff ratio < 0.79 is Nondetected Signal/Cutoff ratio 0.80-0.99 is Grayzone Signal/Cutoff ratio > 0.99 is Detected Supplemental assays are recommended if signal/cutoff ratio is >/=1.00. Signal/cutoff ratio result >/= 5.00 is 97% predictive of positivity for recombinant immunoblot assay (RIBA) and will be reported to the [place] Department of Public Health as required. Blood Venipuncture / Unknown 12/27/2020 9:28 AM CDT 12/27/2020 9:29 AM CDT us Shayan Bach PAC CHEMISTRY ORDERABLES Fin al Result [facility] [address] [place] [id number], from Last 3 Months or Most Recently Relevant to Health Maintenance Insurance [facility] Care Teams Senior Support Engineer Relationship Specialty Start Date End Date Ponce Garcia, PAC [address] [place] [id number] PCP - General Physician Braille Coder 09/20/22
--- OUTSIDE RECORDS SUMMARY | 2024-08-02 07:20 | XMS_ITS | Encounter Summary ---
Author Organization [facility] Address [address] [place] [address] Phone Care Team Providers Care Business Partner Name Role Phone Yamile Mallory APRN, CNP Primary Care Provider Ponce Garcia Primary Care Provider [phone] Reason for Visit * Reason Comments Medication Refill Encounter Details Date Type Department Care Team (Late st Contact Info) Description 06/29/2022 Refill [facility] - [facility] - [place] [address] [place] [address] Yamile Mallory APRN, CNP [address] [place] [address] Medication Refill Social History Tobacco Use Types [...] Sexual Orientation Straight 03/21/2024 2: 18 PM BATCH BLENDER COVID-19 Exposure Response Date Recorded In the last 10 days, have yo u been in contact with someone who was confirmed or suspected to have Coronavirus/COVID-19? No / Unsure 06/22/2022 9:44 AM BATCH BLENDER documented as of this encounter Miscellaneous Notes * Telephone Encounter - Ponce Garcia PAC - 06/30/2022 4:02 PM CST Rx request approved H BLENDER * Telephone Encounter - Althea Vazquez RN - 06/29/2022 11:33 AM CST Medication failed the protocol, provider to review and approve the medication order if appropriate. Requested Prescriptions Pending Prescriptions Disp Refills DULoxetine (CYMBALTA) [address] Particles [Pharmacy Med Name: DULOXETINE HYDROCHLORIDE 20MG CAPSULE DR PART] 90 Capsule 0 Sig: Take 1 Capsule by mouth nightly. SNRI (6 Month Refill Only) Protocol Failed - 06/29/2022 10:58 AM Failed - Visit with relevant provider in past 6 months or upcoming 90 days Recent Visits No visits were found meeting these conditions. Showing recent visits within past 182 days and meeting all other requirements Future Appointments No visits were found meeting these conditions. Showing future appointments within next 90 days and meeting all other requirements Passed - Has an encounter in the past 6 months with a depression or anxiety visit diagnosis Passed - Patient has established therapy with Serotonin-Norepinephrine Reuptake Inhibitors for at least 6 months H BLENDER documented in this encounter Plan of Treatment Upcoming Encounters Date Type Department Care Team (Late st Contact Info) Description 10/12/2024 4:30 PM CDT Office Visit [facility] - [facility] - [place] [address] [place] [address] Ponce Garcia PAC [address] [place] [id number] documented as of this encounter Goals Goal Patient Goal Type Associated Problems Recent Progress Patient-Stated? Author I would like to have lower anxiety Behavioral Health On track(2022 3:41 PM CDT) Yes Mireya Wright, MANAGER NEW PRODUCT Note: Goal/Objective: Decreaseanxiet. Anticipated Time Frame for Goal Completion: 8 sessions Goal Reviewed with: patient Readiness to change: Making a change Department associated with goal: [facility] Steps to achieve [...] track(2022 3:41 PM CDT) No Amee Plaza, MANAGER NEW PRODUCT Note: Learn strategies Implement strategies an report back during sessions Medication adherence. documented as of this encounter Visit Diagnoses Not on filedocumented in this encounter Additional Health Concerns Infection Onset Date Last Indicated Resolved Time Respiratory Rule-Out 04/02/2024 04/02/2024 024 12:07 PM BATCH BLENDER COVID - 19 04/02/2024 04/02/2024 04/02/2024 12:0 4 PM BATCH BLENDER Assessment Noted Time PHQ-9 Depression Total Score: 8 06/04/19 22 3:00 PM BATCH BLENDER documented as of this encounter Care Teams Business Partner Relationship Specialty Start Date End Date Yamile Mallory, MONUMENT SETTER HELPER, AIR DIRECTOR [address] [place] [address] PCP - General Advanced Practice Nurse 09/23/21 Ponce Garcia, PAC [address] [place] [address] PCP - General Physician Store Receiver 09/20/22 documented as of this encounter
--- OUTSIDE RECORDS SUMMARY | 2024-08-02 07:20 | XMS_ITS | Encounter Summary ---
Author Organization [facility] Address [address] [place] [address] Phone Care Team Providers Care Police Or Patrol Park Officer Name Role Phone Ponce Garcia Primary Care Provider [phone] Reason for Visit * Reason Comments Medication Refill Encounter Details Date Type Department Care Team (Late st Contact Info) Description 07/04/2023 Refill [facility] - [facility] Care - [place] [address] [place] [address] Ponce Garcia PAC [address] [place] [address] Medication Refill Social History Tobacco [...] Sexual Orientation Straight 03/21/2024 2: 18 PM INSPECTOR EXHAUST EMISSIONS documented as of this encounter Miscellaneous Notes * Telephone Encounter - Robert Dumas RN - 07/04/2023 8:27 AM CST Duplicate Request ECTOR EXHAUST EMISSIONS documented in this encounter Plan of Treatment Upcoming Encounters Date Type Department Care Team (Late st Contact Info) Description 10/12/2024 4:30 PM CDT Office Visit [facility] - Primary Care - [place] [address] [place] [address] Ponce Garcia PAC [address] [place] [address] documented as of this encounter Goals Goal Patient Goal Type Associated Problems Recent Progress Patient-Stated? Author I would like to have lower anxiety Behavioral Health On track(2022 3:41 PM CDT) Yes Mireya Wright, CELLULAR PHONE REPAIRER Note: Goal/Objective: Decreaseanxiet. Anticipated Time Frame for Goal Completion: 8 sessions Goal Reviewed with: patient Readiness to change: Making a change Department associated with goal: [facility] Steps to achieve [...] track(2022 3:41 PM CDT) No Amee Plaza, CELLULAR PHONE REPAIRER Note: Learn strategies Implement strategies an report back during sessions Medication adherence. documented as of this encounter Visit Diagnoses Not on filedocumented in this encounter Additional Health Concerns Infection Onset Date Last Indicated Resolved Time Respiratory Rule-Out 04/02/2024 04/02/2024 024 12:07 PM INSPECTOR EXHAUST EMISSIONS COVID - 19 04/02/2024 04/02/2024 04/02/2024 12:0 4 PM INSPECTOR EXHAUST EMISSIONS Assessment Noted Time PHQ-9 Depression Total Score: 8 06/04/19 22 3:00 PM INSPECTOR EXHAUST EMISSIONS documented as of this encounter Care Teams Police Or Patrol Park Officer Relationship Specialty Start Date End Date Ponce Garcia, PAC [address] [place] [address] PCP - General Physician Reverse Unit Operator Fisherman 09/20/22 documented as of this encounter
--- OUTSIDE RECORDS SUMMARY | 2024-08-02 07:20 | XMS_ITS | Encounter Summary ---
Author Organization [facility] Address [address] [place] [address] Phone Care Team Providers Care Chief Counsel Name Role Phone Ponce Garcia Primary Care Provider Reason for Visit * Reason Comments Medication Refill Encounter Details Date Type Department Care Team (Late st Contact Info) Description 10/13/2022 Refill [facility] - Primary Care - [place] [address] [place] [address] Ponce Garcia PAC [address] [place] [address] Medication Refill Social History Tobacco [...] Sexual Orientation Straight 03/21/2024 2: 18 PM CATERING OPERATIONS MANAGER COVID-19 Exposure Response Date Recorded In the last 10 days, have yo u been in contact with someone who was confirmed or suspected to have Coronavirus/COVID-19? No / Unsure 09/20/2022 4:10 PM CDT documented as of this encounter Miscellaneous Notes * Telephone Encounter - Ponce Garcia PAC - 10/14/2022 7:39 AM CDT Cymbalta refill too soon. Skelaxin rx approved. * Telephone Encounter - Mindi Arambula RN - 10/13/2022 2:08 PM CDT Medication failed the protocol, provider to review and approve the medication order if appropriate. Requested Prescriptions Pending Prescriptions Disp Refills metaxalone (SKELAXIN) 800 MG Tablet [Pharmacy Med Name: METAXALONE 800MG TABLET] 42 Tablet 2 Sig: TAKE 1 TABLET BY MOUTH 3 TIMES DAILY NEEDED FOR MUSCLE SPASMS OR PAIN. Not Delegated - Muscle Relaxants Protocol Failed - 10/13/2022 2:00 PM Failed - This refill cannot be delegated Passed - Visit with relevant provider in past 12 months or upcoming 90 days Recent Visits Date Type Provider Dept 09/20/22 Office Visit Ponce Garcia, BRANDIE [facility] 11/06/21 Telemedicine Yamile Mallory, RONAK, CHIEF DEPUTY SHERIFF [facility] Showing recent visits within past 365 days and meeting all other requirements Future Appointments No visits were found meeting these conditions. Showing future appointments within next 90 days and meeting all other requirements DULoxetine (CYMBALTA) [address] Particles [Pharmacy Med Name: DULOXETINE HYDROCHLORIDE 20MG CAPSULE DR PART] 90 Capsule 2 Sig: Take 1 Capsule by mouth nightly. SNRI (6 Month Refill Only) Protocol Passed - 10/13/2022 2:00 PM Passed - Visit with relevant provider in past 6 months or upcoming 90 days Recent Visits Date Type Provider Dept 09/20/22 Office Visit Ponce Garcia PAC [facility] Showing recent visits within past 182 days [...] Description 10/12/2024 4:30 PM CDT Office Visit [facility] - Primary Care - [place] [address] [place] [address] Ponce Garcia PAC [address] [place] [address] documented as of this encounter Goals Goal Patient Goal Type Associated Problems Recent Progress Patient-Stated? Author I would like to have lower anxiety Behavioral Health On track(2022 3:41 PM CDT) Yes Mireya Wright LCSW Note: Goal/Objective: Decreaseanxiet. Anticipated Time Frame for Goal Completion: 8 sessions Goal Reviewed with: patient Readiness to change: Making a change Department associated with goal: [facility] Steps to achieve goal: [...] On track(2022 3:41 PM CDT) No Amee Plaza LCSW Note: Learn strategies Implement strategies an report back during sessions Medication adherence. documented as of this encounter Visit Diagnoses Diagnosis Chronic right-sided low back pain, unspecified whether sciatica present Generalized anxiety disorder documented in this encounter Additional Health Concerns Infection Onset Date Last Indicated Resolved Time Respiratory Rule-Out 04/02/2024 04/02/2024 024 12:07 PM CATERING OPERATIONS MANAGER COVID - 19 04/02/2024 04/02/2024 04/02/2024 12:0 4 PM CATERING OPERATIONS MANAGER Assessment Noted Time PHQ-9 Depression Total Score: 8 06/04/19 22 3:00 PM CATERING OPERATIONS MANAGER documented as of this encounter Care Teams Chief Counsel Relationship Specialty Start Date End Date Ponce Garcia, PAC [address] [place] [address] PCP - General Physician Hand Woodworking Sander 09/20/22 documented as of this encounter
--- OUTSIDE RECORDS SUMMARY | 2024-08-02 07:20 | XMS_ITS | Clinical Summary ---
Author Organization [facility] Address [address] [place] [address] Care Team Providers Care Orthotics Assistant Name Role Phone Ramin Cisneros MD Unavailable [phone] Yamile Mallory NP Primary Care Provider [phone] Allergies Active Allergy Reactions Criticality Noted Date Comments Opioids - Morphine Analogues Itching Low Reaction: Itching, Oxycodone Itching Reaction: Itching, Peanut Medications albuterol HFA (PROAIR HFA) 90 mcg/actuation inhaler Inhale 2 puffs 4 (four) times a day as needed. 18 g 11 10/05/19 17 Active Additional Information Patient not taking.Reported on 11/08/2020 albuterol (PROVENTIL,JULIANNA TOLIN) 2.5 mg /3 mL (0.083 %) nebulizer solutionIndica tions:Cough productive of purulent sputum Take 3 mL (2.5 mg total) by nebulization 4 (four) times a day as needed for wheezing or shortness of breath. 25 vial 3 05/25/19 19 Active busPIRone (BUSPAR) 5 mg tabletIndicati ons:Generalize d Anxiety Disorder Take 1.5 tablets (7.5 mg total) by mouth 2 (two) times a day 270 tablet 3 07/16/19 20 Active allopurinoL (ZYLOPRIM) 300 mg tabletIndicati ons:Chronic gout without tophus, unspecified cause, unspecified site Take 1 tablet (300 mg total) by mouth daily 90 tablet 3 02/11/20 21 Active tamsulosin (FLOMAX) 0.4 mg extended release capsule Take 1 capsule (0.4 mg total) by mouth daily 5 capsule 12/24/19 22 Active ketorolac (TORADOL) 10 mg tablet Take 1 tablet (10 mg total) by mouth every 6 (six) hours as needed for pain 20 tablet 12/24/19 22 Active atomoxetine (STRATTERA) 25 mg capsule Take 25 mg by mouth daily 08/01/19 22 Active atorvastatin (LIPITOR) 20 mg tablet Take 20 mg by mouth daily 11/07/[address] (CYMBALTA) 20 mg capsule Take 20 mg by mouth nightly 11/07/19 22 Active montelukast (SINGULAIR) 10 mg tablet Take 10 mg by mouth nightly 11/07/19 22 Active metaxalone (SKELAXIN) 800 mg tablet Take 800 mg by mouth 3 (three) times a day as needed 02/18/20 22 Active busPIRone (BUSPAR) 10 mg tablet Active multivitamin capsule Take 1 capsule by mouth daily Active naproxen (NAPROSYN) 500 mg tablet Take 1 tablet (500 mg total) by mouth 2 (two) times a day with meals 30 tablet 12/22/19 22 022 Discontinued Active Problems Problem Noted Date Diagnosed Date Allergy-induced asthma 04/13/2022 ADHD (attention deficit hype ractivity disorder), combined type 01/06/2022 Generalized anxiety disorder 01/06/2022 Arthralgia of both hands 06/13/2018 Hypercalciuria 11/03/2017 Abnormal urinalysis 01/13/2017 Gout, unspecified 05/27/2016 Calculus of kidney 03/31/2016 Gout 2016 Overview (08/05/2016): Gout Mild persistent asthma with acute exacerbation 0 2016 Overview (08/05/2016): Acute exacerbation of mild persistent asthma Exomphalos 10/30/2015 Overview (08/05/2016): Umbilical hernia Mild intermittent asthma, uncomplicated Resolved Problems Problem Noted Date Diagnosed Date Resolved Date Pulmonary nodule 06/02/2018 07/16/2019 Immunizations Immunization Administration Dates Next Due Influenza, Unspecified 05/25/2018(Deferred: Diane ent ill today) Surgical History Surgery Date Site/Laterality Comments INGUINAL HERNIA REPAIR left inguinal hernia repair KNEE ARTHROSCOPY Right Arthroscopy knee OTHER SURGICAL HISTORY lithotripsy / 2009, 2010, 2011, 2013 OTHER SURGICAL HISTORY Open repair of incarcerated umbilical hernia with mesh Medical History Medical History Date Comments Asthma Asthma Calculus of kidney kidney stones Gout Gout Multiple environmental allergies Allergies, environmental; Comments: GDS 10/30/2015 - PONV (postoperative nausea and vomiting) Fenanyl Family History Medical History Relation Name Comments Hypertension Father Hypertension; Rheum arthritis Mother Rheumatoid a rthritis; Hypertension Other 2 Family history of Hypertension; Nephrolithiasis Other 3 Family histo ry of kidney stones; Lung cancer Other 4 Family history of Cancer, lung; Relation Name Status Comments Father Mother Other 1 Other 2 Other 3 Other 4 Social History Tobacco Use Types Packs/Day Years Used Date Smoking Tobacco: Never Smokeless Tobacco: Never Tobacco Cessation:Counseling Given: No Alcohol Use Standard Drinks/Week Comments Yes 0 (1 standard drink = 0.6 oz pur e alcohol) yearly AUDIT-C Answer Date Recorded Q1: How often do you have a drink containing alc ohol? Monthly or less 07/16/2019 Q2: How many drinks containi ng alcohol do you have on a typical day when you are drinking? 1 or 2 07/16/2019 Q3: How often do you have si x or more drinks on one occasion? Never 07/16/2019 PHQ-2 Answer Date Recorded PHQ-2 Total Score (If total score is 3 or more points, staff should administer the PHQ-9) 0 07/16/2019 Sex and Gender Information Value Date Recorded Sex Assigned at Not on file Legal Sex Male 12:15 AM LIVESTOCK HANDLER Gender Identity Male 2021 11:49 AM CDT Sexual Orientation Straight 2021 11 :49 AM CDT Obstetrics History Last Filed Vital Signs Vital Sign Reading Time Taken Comments Blood Pressure 144/98 04/13/2022 2:46 PM LIVESTOCK HANDLER Pulse 94 04/13/2022 2:46 PM LIVESTOCK HANDLER Temperature 35.6 C (96 F) 12/23/2021 2:08 AM CDT Respiratory Rate 20 12/23/2021 2:08 AM CDT Oxygen Saturation 100% 12/23/2021 2:08 AM CDT Inhaled Oxygen Concentration - - Weight 140.6 kg (310 lb) 04/13/2022 2:46 PM LIVESTOCK HANDLER Height 188 cm (6' 2 ) 04/13/2022 2:46 PM LIVESTOCK HANDLER Body Mass Index 39.8 04/13/2022 2:46 PM LIVESTOCK HANDLER Plan of Treatment Health Maintenance Due Date Last Done Comments Hepatitis C Screening 1981 DTaP/Tdap/Td Vaccine (1 - Tdap) 01/16/1992 Varicella Vaccines (1 of 2 - 13+ 2-dose series) 1994 Hepatitis B Screening 1999 Regular Well Visit/Exam 18-64 1999 Pneumococcal vaccine <65 (1 of 2 - PCV) 01/16/2000 Depression Screening 07/15/2020 07/16/2019, 04/08/2017, 03/10/2017 HPV Vaccines Aged Out No longer eligi ble based on patient's age to complete this topic Influenza Vaccine Discontinued Medical Devices Implanted Type Area Hydrostatic Tester Device Identifier Shelf Expiration Date Model / Serial / Lot [employer] [id number] Inlay [place] 6fr 30cm Pusher Fluoro Marker Atraumatic Insertion Latex Free - [id number] Implanted:Qty: 1 on 08/17/2018 by Ramin Cisneros MD at [facility] Explanted:08/01 by Referral, Self (Quantity not on file) Right: Ureter [employer] [id number] 01/06/2023 [id number] / / [id number] Description:Patient was inst ructed to remove the stent by pulling on the string in 2-3 days. Insurance [facility] Care Teams Orthotics Assistant Relationship Specialty Start Date End Date Yamile Mallory NP [address] [place] [address] PCP - General Nurse Practitioner 04/06/22 Ramin Cisneros MD Consulting Physician Urology 07/16/19
--- OUTSIDE RECORDS SUMMARY | 2024-08-02 07:20 | XMS_ITS | Referral Summary ---
Author Organization [facility] Address [address] [place] [address] Care Team Providers Care Computer Systems Design Analyst Name Role Phone Ramin Cisneros MD Unavailable [phone] Yamile Mallory NP Primary Care Provider [phone] Allergies Active Allergy Reactions Criticality Noted Date [...] Administration Dates Next Due Influenza, Unspecified 05/25/2018(Deferred: Daine ent ill today) Social History Tobacco Use Types Packs/Day Years [...] on file Legal Sex Male 12:15 AM RETAIL MAINTENANCE TECHNICIAN Gender Identity Male 2021 11:49 AM CDT Sexual Orientation Straight 2021 11 :49 AM CDT Last Filed Vital Signs Vital Sign Reading Time Taken Comments Blood Pressure 144/98 04/13/2022 2:46 PM RETAIL MAINTENANCE TECHNICIAN Pulse 94 04/13/2022 2:46 PM RETAIL MAINTENANCE TECHNICIAN Temperature 35.6 C (96 F) 12/23/2021 2:08 AM CDT Respiratory Rate 20 12/23/2021 2:08 AM CDT Oxygen Saturation 100% 12/23/2021 2:08 AM CDT Inhaled Oxygen Concentration - - Weight 140.6 kg (310 lb) 04/13/2022 2:46 PM RETAIL MAINTENANCE TECHNICIAN Height 188 cm (6' 2 ) 04/13/2022 2:46 PM RETAIL MAINTENANCE TECHNICIAN Body Mass Index 39.8 04/13/2022 2:46 PM RETAIL MAINTENANCE TECHNICIAN Plan of Treatment Not on file Medical Devices Implanted Type Area Breaker Hand Device Identifier Shelf Expiration Date Model / Serial / Lot [employer] [id number] Inlay [place] 6fr 30cm Pusher Fluoro Marker Atraumatic Insertion Latex Free - [id number] Implanted:Qty: 1 on 08/17/2018 by Ramin Cisneros MD at [facility] Explanted:08/01 by Referral, Self (Quantity not on file) Right: Ureter [employer] [id number] 01/06/2023 [id number] / / [id number] Description:Patient was inst ructed to remove the stent by pulling on the string in 2-3 days. [place] Care Teams Computer Systems Design Analyst Relationship Specialty Start Date End Date Yamile Mallory NP [address] [place] [address] PCP - General Nurse Practitioner 04/06/22 Ramin Cisneros MD Consulting Physician Urology 07/16/19
[2024-08-02 07:25] VITALS: BP 157/109; PULSE 68; RESP 16; O2SAT 100
[2024-08-02 07:31] VITALS: BP 149/105; PULSE 64; RESP 16; TEMP 36.6; O2SAT 100
[2024-08-02 07:34] VITALS: BP 149/105; PULSE 69; RESP 18; TEMP 36.6; O2SAT 100
[2024-08-02 07:37] LABS: Basophils Percent Auto 0.4 % (0.2-1.2); Eosinophils Absolute Auto 0.1 K/mm3 (0-0.3); Eosinophils Percent Auto 1.6 % (0-4.4); Hematocrit 47.4 % (42.0-52.0); Hemoglobin 16.4 g/dL (14.0-18.0); Immature Granulocyte Absolute 0.02 K/mm3 (0.00-0.031); Immature Granulocyte Percent A 0.3 % (0-0.5); Lymphocytes Absolute Auto 2.81 K/mm3 (0.9-3.2); Lymphocytes Percent Auto 36.7 % (18.3-44.2); Mean Corpuscular HGB Conc 34.6 g/dl (32-36); Mean Corpuscular Hemoglobin 31.3 pg (26-34); Mean Corpuscular Volume 90.5 fl (80-100); Mean Platelet Volume 9.7 fl (7.4-10.4); Monocytes Percent Auto 12.5 % (2.6-8.5); Neutrophils Absolute Auto 3.7 K/mm3 (1.3-6.7); Neutrophils Percent Auto 48.5 % (45.5-73.1); Platelet Count Result 260 k/mm3 (150-375); Red Blood Count 5.24 M/mm3 (4.6-6.20); Red Cell Distribution Width 12.7 % (11.5-14.5); White Blood Count 7.7 K/mm3 (4.5-10.0)
--- OUTSIDE RECORDS SUMMARY | 2024-08-02 07:44 | XMS_ITS | Encounter Summary ---
Author Organization [facility] Address [address] [place] [address] Phone Care Team Providers Care Credit Collections Manager Name Role Phone Yamile Mallory APRN, CNP Primary Care Provider Ponce Garcia Primary Care Provider [phone] Reason for Visit * Reason Comments Medication Refill Encounter Details Date Type Department Care Team (Late st Contact Info) Description 09/13/[address] [facility] - Primary Care - [place] [address] [place] [address] Ponce Garcia PAC [address] [place] [address] Medication Refill Social History Tobacco [...] Sexual Orientation Straight 03/21/2024 2: 18 PM RISK MGR COVID-19 Exposure Response Date Recorded In the [...] Provider Dept 11/06/21 Telemedicine Yamile Mallory APRN, TRANSIT VEHICLE INSPECTOR [facility] 09/23/21 Office Visit Yamile Mallory APRN, TRANSIT VEHICLE INSPECTOR [facility] Showing recent visits within past 365 days and meeting all other requirements Future Appointments Date Type Provider Dept 09/20/22 Appointment Ponce Garcia PAC [facility] Showing future appointments within next 90 days and meeting all other requirements documented in this encounter Plan of Treatment Upcoming Encounters Date Type Department Care Team (Late st Contact Info) Description 10/12/2024 4:30 PM CDT Office Visit [facility] - Primary Care - [place] [address] [place] [address] Ponce Garcia, BRANDIE [address] [place] [address] documented as of this encounter Goals Goal Patient Goal Type Associated Problems Recent Progress Patient-Stated? Author I would like to have lower anxiety Behavioral Health On track(2022 3:41 PM CDT) Yes Mireya Wright, LEAD MECHANIC Note: Goal/Objective: Decreaseanxiet. Anticipated Time Frame for Goal Completion: 8 sessions Goal Reviewed with: patient Readiness to change: Making a change Department associated with goal: [facility] Steps to [...] track(2022 3:41 PM CDT) No Amee Plaza, LEAD MECHANIC Note: Learn strategies Implement strategies an report back during sessions Medication adherence. documented as of this encounter Visit Diagnoses Diagnosis Chronic right-sided low back pain, unspecified whether sciatica present documented in this encounter Additional Health Concerns Infection Onset Date Last Indicated Resolved Time Respiratory Rule-Out 04/02/2024 04/02/2024 024 12:07 PM RISK MGR COVID - 19 04/02/2024 04/02/2024 04/02/2024 12:0 4 PM RISK MGR Assessment Noted Time PHQ-9 Depression Total Score: 8 06/04/19 22 3:00 PM RISK MGR documented as of this encounter Care Teams Credit Collections Manager Relationship Specialty Start Date End Date Yamile Malloyr, TANYARD WORKER, TRANSIT VEHICLE INSPECTOR [address] [place] [id number] PCP - General Advanced Practice Nurse 09/23/21 Ponce Garcia, PAC [address] [place] [address] PCP - General Physician Rn Advanced 09/20/22 documented as of this encounter
--- OUTSIDE RECORDS SUMMARY | 2024-08-02 07:44 | XMS_ITS | Clinical Summary ---
Author Organization [facility] Address [address] [place] [address] Care Team Providers Care Credit Collections Clerk Name Role Phone Ramin Cisneros MD Unavailable [phone] Yamile Mallory NP Primary Care Provider [phone] Allergies Active Allergy Reactions Criticality Noted Date [...] on file Legal Sex Male 12:15 AM MANAGER CONTACT Gender Identity Male 2021 11:49 AM CDT Sexual Orientation Straight 2021 11 :49 AM CDT Obstetrics History Last Filed Vital Signs Vital Sign Reading Time Taken Comments Blood Pressure 144/98 04/13/2022 2:46 PM MANAGER CONTACT Pulse 94 04/13/2022 2:46 PM MANAGER CONTACT Temperature 35.6 C (96 F) 12/23/2021 2:08 AM CDT Respiratory Rate 20 12/23/2021 2:08 AM CDT Oxygen Saturation 100% 12/23/2021 2:08 AM CDT Inhaled Oxygen Concentration - - Weight 140.6 kg (310 lb) 04/13/2022 2:46 PM MANAGER CONTACT Height 188 cm (6' 2 ) 04/13/2022 2:46 PM MANAGER CONTACT Body Mass Index 39.8 04/13/2022 2:46 PM MANAGER CONTACT Plan of Treatment Health Maintenance Due Date [...] Vaccine Discontinued Medical Devices Implanted Type Area Slate Cutter Device Identifier Shelf Expiration Date Model / Serial / Lot [employer] [id number] Inlay [place] 6fr 30cm Pusher Fluoro Marker Atraumatic Insertion Latex Free - [id number] Implanted:Qty: 1 on 08/17/2018 by Ramin Cisneros MD at [facility] Explanted:08/01 by Referral, Self (Quantity not on file) Right: Ureter [employer] [id number] 01/06/2023 [id number] / / [id number] Description:Patient was inst ructed to remove the stent by pulling on the string in 2-3 days. Insurance [facility] Care Teams Credit Collections Clerk Relationship Specialty Start Date End Date Yamile Mallory NP [address] [place] [address] PCP - General Nurse Practitioner 04/06/22 Ramin Cisneros MD Consulting Physician Urology 07/16/19
--- OUTSIDE RECORDS SUMMARY | 2024-08-02 07:44 | XMS_ITS | Encounter Summary ---
Author Organization [facility] Address [address] [place] [address] Phone Care Team Providers Care Home Support Worker Name Role Phone Ponce Garcia Primary Care Provider [phone] Reason for Visit * Reason Comments Medication Refill Encounter Details Date Type Department Care Team (Late st Contact Info) Description 09/29/2023 Refill [facility] - Primary Care - [place] [address] [place] [address] Ponce Garcia PAC [address] [place] [address] Medication Refill Social History Tobacco Use Types Packs/Day Years Used Date Smoking Tobacco: Never Smokeless Tobacco: Never Alcohol Use Standard Drinks/Week Comments Yes 0 (1 standard drink = 0.6 oz pur e alcohol) rarely-Personal choice [facility] Utilities Answer Date Recorded In the [...] often do you attend chur ch or quaker services? 1 to 4 times per year 09/15/2023 Do you belong to any clubs o r organizations such as mormonism groups, unions, fraternal or athletic groups, or [...] place to sleep or slept in a group home (including now)? No 09/15/2023 Education Answer Date [...] Sexual Orientation Straight 03/21/2024 2: 18 PM FLAGSETTER documented as of this encounter Miscellaneous Notes [...] Dept 09/16/23 Office Visit Ponce Garcia PAC [facility] Showing recent visits within past 365 days and meeting all other requirements Future Appointments No visits were found meeting these conditions. Showing future appointments within next 90 days and meeting all other requirements documented in this encounter Plan of Treatment Upcoming Encounters Date Type Department Care Team (Late st Contact Info) Description 10/12/2024 4:30 PM CDT Office Visit [facility] - Primary Care - [place] [address] [place] [address] Ponce Garcia, PAC [address] [place] [address] documented as of this encounter Goals Goal Patient Goal Type Associated Problems Recent Progress Patient-Stated? Author I would like to have lower anxiety Behavioral Health On track(2022 3:41 PM CDT) Yes Mireya Wright, HANDLE BAR ASSEMBLER Note: Goal/Objective: Decreaseanxiet. Anticipated Time Frame for Goal Completion: 8 sessions Goal Reviewed with: patient Readiness to change: Making a change Department associated with goal: [facility] Steps to [...] track(2022 3:41 PM CDT) No Amee Plaza, HANDLE BAR ASSEMBLER Note: Learn strategies Implement strategies an report back during sessions Medication adherence. documented as of this encounter Visit Diagnoses Not on filedocumented in this encounter Additional Health Concerns Infection Onset Date Last Indicated Resolved Time Respiratory Rule-Out 04/02/2024 04/02/2024 024 12:07 PM FLAGSETTER COVID - 19 04/02/2024 04/02/2024 04/02/2024 12:0 4 PM FLAGSETTER Assessment Noted Time PHQ-9 Depression Total Score: 0 09/16/19 24 4:15 PM CDT documented as of this encounter Care Teams Home Support Worker Relationship Specialty Start Date End Date Ponce Garcia, PAC [address] [place] [address] PCP - General Physician Tram Operator 09/20/22 documented as of this encounter
--- OUTSIDE RECORDS SUMMARY | 2024-08-02 07:44 | XMS_ITS | Clinical Summary ---
Author Organization [facility] Address [address] [place] [address] Phone Care Team Providers Care Review Appraiser Name Role Phone Ponce Garcia Primary Care Provider Allergies Active Allergy Reactions Criticality Noted Date [...] Type Department Care Team Description 07/25/[address] [facility] [place] [address] [place] [address] Ponce Garcia, PAC Medication Refill 07/02/[address] [facility] [place] [address] [place] [address] Ponce Garcia, PAC Medication Refill 06/25/[address] [facility] [place] [address] [place] [address] Ponce Garcia, PAC Medication Refill 06/08/[address] [facility] [place] [address] [place] [address] Ponce Garcia, PAC Medication Refill 05/08/[address] [facility] [place] [address] [facility] [place] [address] Ponce Garcia, PAC Medication Refill from Last [...] 0.6 oz pur e alcohol) rarely-Personal choice [facility] Utilities Answer Date Recorded In the past 12 months has [employer], gas, oil, or water company threatened to [...] often do you attend chur ch or buddhism services? More than 4 times per year 03/21/2024 Do you belong to any clubs o r organizations such as lutheran groups, unions, fraternal or athletic groups, or [...] Score - Questions 1-9 0 12/0 06/2023 [facility] Occupat ional [facility] - Occupational Stress Questionnaire Answer [...] any time in the past 12 [address] [place], were you homeless or living in a [...] Sexual Orientation Straight 03/21/2024 2: 18 PM SPRAY STAINER Last Filed Vital Signs Vital Sign Reading Time Taken Comments Blood Pressure 132/88 04/13/2024 4:01 PM SPRAY STAINER Pulse 82 04/13/2024 4:01 PM SPRAY STAINER Temperature 37.7 C (99.8 F) 04/13/2024 4:01 PM SPRAY STAINER Respiratory Rate 20 04/13/2024 4:01 PM SPRAY STAINER Oxygen Saturation 98% 04/13/2024 4:01 PM SPRAY STAINER Inhaled Oxygen Concentration - - Weight 141.1 kg (311 lb) 04/13/2024 4:01 PM SPRAY STAINER Height 188 cm (6' 2 ) 09/20/2022 4:10 PM CDT Body Mass Index 39.93 09/20/2022 4:10 PM CDT Plan of Treatment Upcoming Encounters Date Type Department Care Team (Late st Contact Info) Description 10/12/2024 4:30 PM CDT Office Visit [facility] - [facility] Care - [place] [address] [place] [address] Ponce Garcia, PAC [address] [place] [address] Health Maintenance Due Date Last [...] track(2022 3:41 PM CDT) Yes Mireya Wright, MARKET ASSET PROTECTION MANAGER Note: Goal/Objective: Decreaseanxiet. Anticipated Time Frame for Goal Completion: 8 sessions Goal Reviewed with: patient Readiness to change: Making a change Department associated with goal: [facility] Steps to [...] track(2022 3:41 PM CDT) No Amee Plaza, MARKET ASSET PROTECTION MANAGER Note: Learn strategies Implement strategies an report back during sessions Medication adherence. Procedures Procedure Name Priority Date/Time Associated Diagnosis Comments HEMOGLOBIN A1C W/ ESTIMATED GLUCOSE Routine 03/17/2024 9:23 AM SPRAY STAINER Type 2 diabetes mellitus without complication, without long-term current use of insulin (HCC) CMP (COMPREHENSIVE METABOLIC PANEL) Routine 10/29/2022 8:01 AM CDT Hyperlipidemia, unspecified hyperlipidemia type HEPATITIS C ANTIBODY Routine 12/27/2020 9:28 AM CDT Preventative health care (Adult) from Last 3 Months or Most Recently Relevant to Health Maintenance Results * (ABNORMAL) HEMOGLOBIN A1C W/ ESTIMATED GLUCOSE (03/17/2024 9:23 AM SPRAY STAINER) HGB-A1C 6.8(H) 4.0 - 6.0 % 03/17/2024 10:12 AM SPRAY STAINER [facility] Est Average Glucose 148.5 mg/dL 03/17/2024 10:12 AM SPRAY STAINER [facility] Blood Venipuncture / Unknown 03/17/2024 9:23 AM SPRAY STAINER 03/17/2024 10:00 AM SPRAY STAINER Narrative [facility] - 03/17/2024 10:12 AM SPRAY STAINER HEMOGLOBIN A1C: DIABETIC PATIENTS: WELL-CONTROLLED: 6.2 - 7.0 INTERMEDIATE WELL-CONTROLLED: 7.0 - 9.0 POORLY-CONTROLLED: >9.0 us Ponce Tra Garcia PAC CHEMISTRY ORDERABLES Final R esult [facility] [address] [place] [address] * (ABNORMAL) CMP (COMPREHENSIVE METABOLIC PANEL) (10/29/2022 8:01 AM CDT) SODIUM 139 136 - 144 mmol/L 10/29/2022 1:13 PM CDT [facility] POTASSIUM 4.0 3.5 - 5.1 mmol/L 10/29/2022 1:13 PM CDT [facility] CHLORIDE 98(L) 100 - 110 mmol/L 10/29/2022 1:13 PM CDT [facility] CO2, VENOUS 26 22 - 32 mmol/L 10/29/2022 1:13 PM CDT [facility] ANION GAP 19.0 8.0 - 20.0 mmol/L 10/29/2022 1:13 PM CDT [facility] GLUCOSE 128(H) 70 - 99 mg/dL 10/29/2022 1:13 PM CDT [facility] BUN 9 6 - 20 mg/dL 10/29/2022 1:13 PM CDT [facility] CREATININE, BLOOD 0.72(L) 0.80 - 1.30 mg/dL 10/29/2022 1:13 PM CDT [facility] BUN/CREATININE RATIO 13 12 - 20 ratio 10/29/2022 1:13 PM CDT [facility] TOTAL PROTEIN 7.8 6.0 - 8.3 g/dL 10/29/2022 1:13 PM CDT [facility] ALBUMIN 4.5 3.5 - 5.2 g/dL 10/29/2022 1:13 PM CDT [facility] Comment: The colormetric methods used for the determination of Albumin may lead to falsely elevated test results in patients suffering from renal failure or insufficiency due to interference with other proteins. A/G RATIO 1.4 1.0 - 2.0 10/29/2022 1:13 PM CDT [facility] CALCIUM 10.2 8.9 - 10.3 mg/dL 10/29/2022 1:13 PM CDT [facility] T BILI 0.4 <=1.2 mg/dL 10/29/2022 1:13 PM CDT [facility] SGOT (AST) 31 <=40 U/L 10/29/2022 1:13 PM CDT [facility] SGPT (ALT) 42(H) <=41 U/L 10/29/2022 1:13 PM CDT [facility] ALKALINE PHOSPHATASE 109 40 - 130 U/L 10/29/2022 1:13 PM CDT [facility] IS THE PATIENT REQUIRED TO BE FASTING? No 10/29/2022 1:13 PM CDT [facility] GFR, ESTIMATED >60 >=60 10/29/2022 1:13 PM CDT [facility] Comment: Creatinine Clearance is the preferred criteria for selecting drug dose adjustments in renally impaired patients. The GFR is provided as additional pertinent clinical information. GFR is reported in mL/min/1.73 sq m. Calculation based on the Chronic Kidney Disease Epidemiology Collaboration (CKD- EPI) equation refit without adjustment for race. GFR, EST. >60 >=60 023 1:13 PM CDT [facility] GFR, EST. NONAFRICAN >60 >=60 10/29/2022 1:13 PM CDT [facility] Blood Venipuncture / Unknown 10/29/2022 8:01 AM CDT 10/29/2022 12:07 PM CDT us Yamile Mallory APRN, CNP CHEMISTRY ORDERABLES Fi nal Result [facility] [address] [place] [address] * HEPATITIS C ANTIBODY (12/27/2020 9:28 AM CDT) hepatitis C antibody 0.10 <1 S/[facility] [id number] B 12/27/2020 3:42 PM CDT [facility] Comment: Signal/Cutoff ratio < 0.79 is Nondetected Signal/Cutoff ratio 0.80-0.99 is Grayzone Signal/Cutoff ratio > 0.99 is Detected Supplemental assays are recommended if signal/cutoff ratio is >/=1.00. Signal/cutoff ratio result >/= 5.00 is 97% predictive of positivity for recombinant immunoblot assay (RIBA) and will be reported to the [place] [facility] as required. Blood Venipuncture / Unknown 12/27/2020 9:28 AM CDT 12/27/2020 9:29 AM CDT us Sahyan Bach PAC CHEMISTRY ORDERABLES Fin al Result [facility] [address] [place] [id number], from Last 3 Months or Most Recently Relevant to Health Maintenance Insurance [facility] Care Teams Review Appraiser Relationship Specialty Start Date End Date Ponce Garcia, PAC [address] [place] [phone] PCP - General Physician Mycologist 09/20/22
--- OUTSIDE RECORDS SUMMARY | 2024-08-02 07:44 | XMS_ITS | Encounter Summary ---
Author Organization [facility] Address [address] [place] [address] Phone Care Team Providers Care Talent Acquisition Operations Manager Name Role Phone Ponce Garcia Primary Care Provider Reason for Visit * Reason Comments Medication Refill Encounter Details Date Type Department Care Team (Late st Contact Info) Description 10/03/2023 Refill [facility] - Primary Care - [place] [address] [place] [address] Ponce Garcia PAC [address] [place] [address] Medication Refill Social History Tobacco Use Types Packs/Day Years Used Date Smoking Tobacco: Never Smokeless Tobacco: Never Alcohol Use Standard Drinks/Week Comments Yes 0 (1 standard drink = 0.6 oz pur e alcohol) rarely-Personal choice [facility] Utilities Answer Date Recorded In the past [...] often do you attend chur ch or islam services? 1 to 4 times per year 09/15/2023 Do you belong to any clubs o r organizations such as religion groups, unions, fraternal or athletic groups, or [...] Sexual Orientation Straight 03/21/2024 2: 18 PM CHIEF COUNSEL documented as of this encounter Miscellaneous Notes [...] Dept 09/16/23 Office Visit Ponce Garcia PAC [facility] Showing recent visits within past 365 days [...] [facility] - Primary Care - [place] [id number] [place] [address] Ponce Garcia PAC [address] [place] [address] documented as of this encounter Goals Goal Patient Goal Type Associated Problems Recent Progress Patient-Stated? Author I would like to have lower anxiety Behavioral Health On track(2022 3:41 PM CDT) Yes Mireya Wright, SCREEN PRINTING CLOTH SPREADER Note: Goal/Objective: Decreaseanxiet. Anticipated Time Frame for Goal Completion: 8 sessions Goal Reviewed with: patient Readiness to change: Making a change Department associated with goal: [facility] Steps [...] track(2022 3:41 PM CDT) No Amee Plaza, SCREEN PRINTING CLOTH SPREADER Note: Learn strategies Implement strategies an report back during sessions Medication adherence. documented as of this encounter Visit Diagnoses Diagnosis Chronic right-sided low back pain, unspecified whether sciatica present documented in this encounter Additional Health Concerns Infection Onset Date Last Indicated Resolved Time Respiratory Rule-Out 04/02/2024 04/02/2024 024 12:07 PM CHIEF COUNSEL COVID - 19 04/02/2024 04/02/2024 04/02/2024 12:0 4 PM CHIEF COUNSEL Assessment Noted Time PHQ-9 Depression Total Score: 0 09/16/19 24 4:15 PM CDT documented as of this encounter Care Teams Talent Acquisition Operations Manager Relationship Specialty Start Date End Date Ponce Garcia PAC [address] [place] [address] PCP - General Physician Access Rn 09/20/22 documented as of this encounter
--- OUTSIDE RECORDS SUMMARY | 2024-08-02 07:44 | XMS_ITS | Encounter Summary ---
Author Organization [facility] Address [address] [place] [address] Phone Care Team Providers Care Rock Climbing Instructor Name Role Phone Ponce Garcia Primary Care Provider Reason for Visit * Reason Comments Medication Refill Encounter Details Date Type Department Care Team (Late st Contact Info) Description 07/16/2023 Refill [facility] - Primary Care - [place] [address] [place] [address] Ponce Garcia PAC [address] [place] [address] Medication Refill Social History Tobacco [...] Sexual Orientation Straight 03/21/2024 2: 18 PM LABORATORY MONITOR documented as of this encounter Miscellaneous Notes * Telephone Encounter - Althea Vazquez, RN - 07/18/2023 9:40 AM CDT Medication(s) refilled and signed per [facility] Chronic Medication Refill Standing Order for Pediatricand [...] Dept 09/20/22 Office Visit Ponce Garcia PAC [facility] Showing recent visits within past 365 days and meeting all other requirements Future Appointments Date Type Provider Dept 09/16/23 Appointment Ponce Garcia PAC [facility] Showing future appointments within next 90 days and meeting all other requirements documented in this encounter Plan of Treatment Upcoming Encounters Date Type Department Care Team (Late st Contact Info) Description 10/12/2024 4:30 PM CDT Office Visit [facility] - Primary Care - [place] [address] [place] [address] Ponce Garcia PAC [address] [place] [address] documented as of this encounter Goals Goal Patient Goal Type Associated Problems Recent Progress Patient-Stated? Author I would like to have lower anxiety Behavioral Health On track(2022 3:41 PM CDT) Yes Mireya Wright, FINANCIAL ECONOMIST Note: Goal/Objective: Decreaseanxiet. Anticipated Time Frame for Goal Completion: 8 sessions Goal Reviewed with: patient Readiness to change: Making a change Department associated with goal: [facility] Steps to achieve [...] track(2022 3:41 PM CDT) No Amee Plaza, FINANCIAL ECONOMIST Note: Learn strategies Implement strategies an report back during sessions Medication adherence. documented as of this encounter Visit Diagnoses Diagnosis Mild intermittent extrinsic asthma without complication documented in this encounter Additional Health Concerns Infection Onset Date Last Indicated Resolved Time Respiratory Rule-Out 04/02/2024 04/02/2024 024 12:07 PM LABORATORY MONITOR COVID - 19 04/02/2024 04/02/2024 04/02/2024 12:0 4 PM LABORATORY MONITOR Assessment Noted Time PHQ-9 Depression Total Score: 8 06/04/19 22 3:00 PM LABORATORY MONITOR documented as of this encounter Care Teams Rock Climbing Instructor Relationship Specialty Start Date End Date Ponce Garcia, PAC [address] [place] [phone] PCP - General Physician Health And Safety Manager 09/20/22 documented as of this encounter
--- OUTSIDE RECORDS SUMMARY | 2024-08-02 07:44 | XMS_ITS | Encounter Summary ---
Author Organization [facility] Address [address] [place] [address] Phone Care Team Providers Care Alligator Trapper Name Role Phone Yamile Mallory APRN, CNP Primary Care Provider Ponce Garcia Primary Care Provider [phone] Reason for Visit * Reason Comments Medication Refill Encounter Details Date Type Department Care Team (Late st Contact Info) Description 06/29/2022 Refill [facility] - Primary Care - [place] [address] [place] [address] Yamile Mallory APRN, CNP [address] [place] [address] Medication Refill Social History Tobacco [...] Sexual Orientation Straight 03/21/2024 2: 18 PM SUGAR PRESSER COVID-19 Exposure Response Date Recorded In the last 10 days, have yo u been in contact with someone who was confirmed or suspected to have Coronavirus/COVID-19? No / Unsure 06/22/2022 9:44 AM SUGAR PRESSER documented as of this encounter Miscellaneous Notes * Telephone Encounter - Ponce Garcia PAC - 06/30/2022 4:02 PM CST Rx request approved R PRESSER * Telephone Encounter - Althea Vazquez RN [...] Reuptake Inhibitors for at least 6 months R PRESSER documented in this encounter Plan of Treatment Upcoming Encounters Date Type Department Care Team (Late st Contact Info) Description 10/12/2024 4:30 PM CDT Office Visit [facility] - Primary Care - [place] [address] [place] [address] Ponce Garcia PAC [address] [place] [phone] documented as of this encounter Goals Goal Patient Goal Type Associated Problems Recent Progress Patient-Stated? Author I would like to have lower anxiety Behavioral Health On track(2022 3:41 PM CDT) Yes Mireya Wright, ANTIQUE REPAIRER Note: Goal/Objective: Decreaseanxiet. Anticipated Time Frame [...] track(2022 3:41 PM CDT) No Amee Plaza, ANTIQUE REPAIRER Note: Learn strategies Implement strategies an report back during sessions Medication adherence. documented as of this encounter Visit Diagnoses Not on filedocumented in this encounter Additional Health Concerns Infection Onset Date Last Indicated Resolved Time Respiratory Rule-Out 04/02/2024 04/02/2024 024 12:07 PM SUGAR PRESSER COVID - 19 04/02/2024 04/02/2024 04/02/2024 12:0 4 PM SUGAR PRESSER Assessment Noted Time PHQ-9 Depression Total Score: 8 06/04/19 22 3:00 PM SUGAR PRESSER documented as of this encounter Care Teams Alligator Trapper Relationship Specialty Start Date End Date Yamile Mallory, WELDING SPECIALIST, COMMUNICATIONS TECHNOLOGIST [address] [place] [address] PCP - General Advanced Practice Nurse 09/23/21 Ponce Garcia, PAC [address] [place] [address] PCP - General Physician Gis Database Administrator 09/20/22 documented as of this encounter
--- OUTSIDE RECORDS SUMMARY | 2024-08-02 07:44 | XMS_ITS | Encounter Summary ---
Author Organization [facility] Address [address] [place] [address] Phone Care Team Providers Care Financial Service Professional Name Role Phone Ponce Garcia Primary Care Provider [phone] Reason for Visit * Reason Comments Medication Refill Encounter Details Date Type Department Care Team (Late st Contact Info) Description 07/13/2023 Refill [facility] - Primary Care - [place] [address] [place] [address] Ponce Garcia PAC [address] [place] [address] Medication Refill Social History Tobacco [...] Sexual Orientation Straight 03/21/2024 2: 18 PM INSURANCE CASE MANAGER documented as of this encounter Miscellaneous [...] Provider Dept 09/16/23 Appointment Ponce Garcia PAC [facility] Showing future appointments within next 90 days and meeting all other requirements Passed - Patient has established therapy with Serotonin-Norepinephrine Reuptake Inhibitors for at least 6 months documented in this encounter Plan of Treatment Upcoming Encounters Date Type Department Care Team (Late st Contact Info) Description 10/12/2024 4:30 PM CDT Office Visit [facility] - Primary Care - [place] [address] [place] [address] Ponce Garcia PAC [address] [place] [address] documented as of this encounter Goals Goal Patient Goal Type Associated Problems Recent Progress Patient-Stated? Author I would like to have lower anxiety Behavioral Health On track(2022 3:41 PM CDT) Yes Mireya Wright, PLUMBER PIPE FITTING Note: Goal/Objective: Decreaseanxiet. Anticipated Time Frame for Goal Completion: 8 sessions Goal Reviewed with: patient Readiness to change: Making a change Department associated with goal: [facility] Steps to achieve goal: [...] track(2022 3:41 PM CDT) No Amee Plaza, PLUMBER PIPE FITTING Note: Learn strategies Implement strategies an report back during sessions Medication adherence. documented as of this encounter Visit Diagnoses Diagnosis Generalized anxiety disorder documented in this encounter Additional Health Concerns Infection Onset Date Last Indicated Resolved Time Respiratory Rule-Out 04/02/2024 04/02/2024 024 12:07 PM INSURANCE CASE MANAGER COVID - 19 04/02/2024 04/02/2024 04/02/2024 12:0 4 PM INSURANCE CASE MANAGER Assessment Noted Time PHQ-9 Depression Total Score: 8 06/04/19 22 3:00 PM INSURANCE CASE MANAGER documented as of this encounter Care Teams Financial Service Professional Relationship Specialty Start Date End Date Ponce Garcia, PAC [address] [place] [address] PCP - General Physician Grey Stock Recorder 09/20/22 documented as of this encounter
--- OUTSIDE RECORDS SUMMARY | 2024-08-02 07:44 | XMS_ITS | Encounter Summary ---
Author Organization [facility] Address [address] [place] [address] Phone Care Team Providers Care Rcp Name Role Phone Ponce Garcia Primary Care Provider Reason for Visit * Reason Comments Medication Refill Encounter Details Date Type Department Care Team (Late st Contact Info) Description 07/04/2023 Refill [facility] - Primary Care - [place] [address] [place] [address] Ponce Garcia PAC [address] [place] [address] Medication Refill Social History Tobacco [...] Sexual Orientation Straight 03/21/2024 2: 18 PM FINISHER SPECIAL STOCKS documented as of this encounter Miscellaneous Notes * Telephone Encounter - Robert Dumas RN - 07/04/2023 8:27 AM CST Duplicate Request SHER SPECIAL STOCKS documented in this encounter Plan of Treatment Upcoming Encounters Date Type Department Care Team (Late st Contact Info) Description 10/12/2024 4:30 PM CDT Office Visit [facility] - Primary Care - [place] [address] [place] [address] Ponce Garcia PAC [address] [place] [address] documented as of this encounter Goals Goal Patient Goal Type Associated Problems Recent Progress Patient-Stated? Author I would like to have lower anxiety Behavioral Health On track(2022 3:41 PM CDT) Yes Mireya Wright, NURSE TRANSITION Note: Goal/Objective: Decreaseanxiet. Anticipated Time Frame for Goal Completion: 8 sessions Goal Reviewed with: patient Readiness to change: Making a change Department associated with goal: [facility] Steps to achieve [...] track(2022 3:41 PM CDT) No Amee Plaza, NURSE TRANSITION Note: Learn strategies Implement strategies an report back during sessions Medication adherence. documented as of this encounter Visit Diagnoses Not on filedocumented in this encounter Additional Health Concerns Infection Onset Date Last Indicated Resolved Time Respiratory Rule-Out 04/02/2024 04/02/2024 024 12:07 PM FINISHER SPECIAL STOCKS COVID - 19 04/02/2024 04/02/2024 04/02/2024 12:0 4 PM FINISHER SPECIAL STOCKS Assessment Noted Time PHQ-9 Depression Total Score: 8 06/04/19 22 3:00 PM FINISHER SPECIAL STOCKS documented as of this encounter Care Teams Rcp Relationship Specialty Start Date End Date Ponce Garcia, PAC [address] [place] [address] PCP - General Physician Chocolate Production Machine Operator 09/20/22 documented as of this encounter
--- OUTSIDE RECORDS SUMMARY | 2024-08-02 07:44 | XMS_ITS | Encounter Summary ---
Author Organization [facility] Address [address] [place] [address] Phone Care Team Providers Care Mechanical Service Technician Name Role Phone Ponce Garcia Primary Care Provider [phone] Reason for Visit * Reason Comments Medication Refill Encounter Details Date Type Department Care Team (Late st Contact Info) Description 10/13/2022 Refill [facility] - Primary Care - [place] [address] [place] [address] Ponce Garcia PAC [address] [place] [address] Medication Refill Social History Tobacco [...] Sexual Orientation Straight 03/21/2024 2: 18 PM DYE COLORIST DYER COVID-19 Exposure Response Date Recorded In the [...] Dept 09/20/22 Office Visit Ponce Garcia, BRANDIE [facility] 11/06/21 Telemedicine Yamile Mallory, RONAK, LABORER STEEL HANDLING [facility] Showing recent visits within past 365 [...] Dept 09/20/22 Office Visit Ponce Garcia PAC [facility] Showing recent visits within past 182 days [...] Description 10/12/2024 4:30 PM CDT Office Visit [facility] - Primary Care - [place] [address] [place] [address] Pocne Garcia PAC [address] [place] [address] documented as of this encounter Goals Goal Patient Goal Type Associated Problems Recent Progress Patient-Stated? Author I would like to have lower anxiety Behavioral Health On track(2022 3:41 PM CDT) Yes Mireya Wright LCSW Note: Goal/Objective: Decreaseanxiet. Anticipated Time Frame for Goal Completion: 8 sessions Goal Reviewed with: patient Readiness to change: Making a change Department associated with goal: [facility] Steps to [...] Respiratory Rule-Out 04/02/2024 04/02/2024 024 12:07 PM DYE COLORIST DYER COVID - 19 04/02/2024 04/02/2024 04/02/2024 12:0 4 PM DYE COLORIST DYER Assessment Noted Time PHQ-9 Depression Total Score: 8 06/04/19 22 3:00 PM DYE COLORIST DYER documented as of this encounter Care Teams Mechanical Service Technician Relationship Specialty Start Date End Date Ponce Garcia, PAC [address] [place] [address] PCP - General Physician Take Down Sorter 09/20/22 documented as of this encounter
--- OUTSIDE RECORDS SUMMARY | 2024-08-02 07:44 | XMS_ITS | Referral Summary ---
Author Organization [facility] Address [address] [place] [id number] Care Team Providers Care E Learning Specialist Name Role Phone Ramin Cisneros MD Unavailable [phone] Yamile Mallory NP Primary Care Provider [phone] Allergies Active Allergy Reactions Criticality Noted Date [...] Influenza, Unspecified 05/25/2018(Deferred: Diane ent ill today) Social History Tobacco Use [...] on file Legal Sex Male 12:15 AM CIRCULAR STUFFER Gender Identity Male 2021 11:49 AM CDT Sexual Orientation Straight 2021 11 :49 AM CDT Last Filed Vital Signs Vital Sign Reading Time Taken Comments Blood Pressure 144/98 04/13/2022 2:46 PM CIRCULAR STUFFER Pulse 94 04/13/2022 2:46 PM CIRCULAR STUFFER Temperature 35.6 C (96 F) 12/23/2021 2:08 AM CDT Respiratory Rate 20 12/23/2021 2:08 AM CDT Oxygen Saturation 100% 12/23/2021 2:08 AM CDT Inhaled Oxygen Concentration - - Weight 140.6 kg (310 lb) 04/13/2022 2:46 PM CIRCULAR STUFFER Height 188 cm (6' 2 ) 04/13/2022 2:46 PM CIRCULAR STUFFER Body Mass Index 39.8 04/13/2022 2:46 PM CIRCULAR STUFFER Plan of Treatment Not on file Medical Devices Implanted Type Area Office Mover Device Identifier Shelf Expiration Date Model / Serial / Lot [employer] [id number] Inlay [place] 6fr 30cm Pusher Fluoro Marker Atraumatic Insertion Latex Free - [id number] Implanted:Qty: 1 on 08/17/2018 by Ramin Cisneros MD at [facility] Explanted:08/01 by Referral, Self (Quantity not on file) Right: Ureter [employer] [id number] 01/06/2023 [id number] / / [id number] Description:Patient was inst ructed to remove the stent by pulling on the string in 2-3 days. [place] [employer] [place] [employer] Care Teams E Learning Specialist Relationship Specialty Start Date End Date Yamile Mallory NP [address] [place] [address] PCP - General Nurse Practitioner 04/06/22 Ramin Cisneros MD Consulting Physician Urology 07/16/19
--- OUTSIDE RECORDS SUMMARY | 2024-08-02 07:44 | XMS_ITS | Encounter Summary ---
Author Organization [facility] Address [address] [place] [address] Phone Care Team Providers Care Business Information Consultant Name Role Phone Ponce Garcia Primary Care Provider Reason for Visit * Reason Comments Medication Refill Encounter Details Date Type Department Care Team (Late st Contact Info) Description 08/17/2023 Refill [facility] - Primary Care - [place] [address] [place] [address] Ponce Garcia PAC [address] [place] [address] Medication Refill Social History Tobacco [...] Sexual Orientation Straight 03/21/2024 2: 18 PM CASHIER CHECKER documented as of this encounter Miscellaneous Notes [...] Dept 09/20/22 Office Visit Ponce Garcia PAC [facility] Showing recent visits within past 365 days and meeting all other requirements Future Appointments Date Type Provider Dept 09/16/23 Appointment Ponce Garcia PAC [facility] Showing future appointments within next 90 days and meeting all other requirements documented in this encounter Plan of Treatment Upcoming Encounters Date Type Department Care Team (Late st Contact Info) Description 10/12/2024 4:30 PM CDT Office Visit [facility] - Primary Care - [place] [address] [place] [address] Ponce Garcia PAC [address] [place] [address] documented as of this encounter Goals Goal Patient Goal Type Associated Problems Recent Progress Patient-Stated? Author I would like to have lower anxiety Behavioral Health On track(2022 3:41 PM CDT) Yes Mireya Wright, IRRIGATIONIST Note: Goal/Objective: Decreaseanxiet. Anticipated Time Frame for Goal Completion: 8 sessions Goal Reviewed with: patient Readiness to change: Making a change Department associated with goal: [facility] Steps to [...] track(2022 3:41 PM CDT) No Amee Plaza, IRRIGATIONIST Note: Learn strategies Implement strategies an report back during sessions Medication adherence. documented as of this encounter Visit Diagnoses Diagnosis Chronic right-sided low back pain, unspecified whether sciatica present documented in this encounter Additional Health Concerns Infection Onset Date Last Indicated Resolved Time Respiratory Rule-Out 04/02/2024 04/02/2024 024 12:07 PM CASHIER CHECKER COVID - 19 04/02/2024 04/02/2024 04/02/2024 12:0 4 PM CASHIER CHECKER Assessment Noted Time PHQ-9 Depression Total Score: 8 06/04/19 22 3:00 PM CASHIER CHECKER documented as of this encounter Care Teams Business Information Consultant Relationship Specialty Start Date End Date Ponce Garcia, PAC [address] [place] [address] PCP - General Physician Retail Service Lead Merchandiser 09/20/22 documented as of this encounter
--- OUTSIDE RECORDS SUMMARY | 2024-08-02 07:44 | XMS_ITS | Encounter Summary ---
Author Organization [facility] Address [address] [place] [address] Phone Care Team Providers Care Vegetable Vendor Name Role Phone Ponce Garcia Primary Care Provider Reason for Visit * Reason Comments Medication Refill Encounter Details Date Type Department Care Team (Late st Contact Info) Description 07/01/2023 Refill [facility] - Primary Care - [place] [address] [place] [address] Ponce Garcia PAC [address] [place] [address] Medication Refill Social History Tobacco [...] Sexual Orientation Straight 03/21/2024 2: 18 PM PRODUCTION QUALITY ANALYST documented as of this encounter Miscellaneous Notes * Telephone Encounter - Ponce Garcia PAC - 07/01/2023 9:39 AM CST Refill approved. UCTION QUALITY ANALYST * Telephone Encounter - Robert Dumas RN [...] Dept 09/20/22 Office Visit Ponce Garcia PAC [facility] Showing recent visits within past 365 days and meeting all other requirements Future Appointments No visits were found meeting these conditions. Showing future appointments within next 90 days and meeting all other requirements UCTION QUALITY ANALYST documented in this encounter Plan of Treatment Upcoming Encounters Date Type Department Care Team (Late st Contact Info) Description 10/12/2024 4:30 PM CDT Office Visit [facility] - Primary Care - [place] [address] [place] [address] Ponce Garcia PAC [address] [place] [address] documented as of this encounter Goals Goal Patient Goal Type Associated Problems Recent Progress Patient-Stated? Author I would like to have lower anxiety Behavioral Health On track(2022 3:41 PM CDT) Yes Mireya Wright, SUPERVISOR LITHARGE Note: Goal/Objective: Decreaseanxiet. Anticipated Time Frame for Goal Completion: 8 sessions Goal Reviewed with: patient Readiness to change: Making a change Department associated with goal: [facility] Steps to [...] track(2022 3:41 PM CDT) No Amee Plaza, SUPERVISOR LITHARGE Note: Learn strategies Implement strategies an report back during sessions Medication adherence. documented as of this encounter Visit Diagnoses Diagnosis Chronic right-sided low back pain, unspecified whether sciatica present documented in this encounter Additional Health Concerns Infection Onset Date Last Indicated Resolved Time Respiratory Rule-Out 04/02/2024 04/02/2024 024 12:07 PM PRODUCTION QUALITY ANALYST COVID - 19 04/02/2024 04/02/2024 04/02/2024 12:0 4 PM PRODUCTION QUALITY ANALYST Assessment Noted Time PHQ-9 Depression Total Score: 8 06/04/19 22 3:00 PM PRODUCTION QUALITY ANALYST documented as of this encounter Care Teams Vegetable Vendor Relationship Specialty Start Date End Date Ponce Garcia, PAC [address] [place] [id number] PCP - General Physician Senior Electronics Engineer 09/20/22 documented as of this encounter
[2024-08-02 08:00] LABS: Alanine Aminotransferase 58 U/L (6-50); Albumin Level 4.5 g/dL (3.5-5.1); Alkaline Phosphatase 117 U/L (38-126); Anion Gap 8 mmol/L (4-12); Aspartate Amino Transferase 40 U/L (17-59); Bilirubin,Total 0.9 mg/dL (0.2-1.3); Blood Urea Nitrogen 12 mg/dL (9-20); Calcium 8.8 mg/dL (8.4-10.2); Carbon Dioxide 28 mmol/L (22-30); Chloride 103 mmol/L (98-107); Estimated CRCL calculation 136 ml/min; Estimated Glomerular Filt Rate > 60; Glucose 138 mg/dL (65-110); Potassium 3.5 mmol/L (3.4-5.0); Sodium 139 mmol/L (137-145)
--- NOTE | 2024-08-02 08:05 | ED_ITS ---
HPI - General Adult General Chief complaint: Urogenital-Male Stated complaint: i have a kidney stone Time Seen by Provider: 08/02/24 07:31 History of Present Illness HPI narrative: 44-year-old male with significant history of kidney stones presents to the emergency department for evaluation for worsening left flank pain. Patient states he did have some radiation of the pain down into his groin earlier but that pain has since improved. Patient states he does have a 12 mm kidney stone that has been tracked by Urology. Patient follows up with Dr. Chaudhry. Patient felt that he had some increased issues with dehydration and woke up with the flank pain, patient states that the increase hydration did help a little with his pain but he would be evaluated. Related Data Allergies Allergy/AdvReac Type Severity Reaction Status Date / Time peanut Allergy Mild Unknown Verified 08/02/24 07:18 Opioids - Morphine Analogues AdvReac Mild Itching Verified 08/02/24 07:18 Review of Systems 2 Review of Systems: All systems reviewed & are unremarkable except as noted in HPI and below PMFSH Past Medical History Medical History (Updated 08/02/24 @ 09:20 by Michael Jordan MD) History of kidney stones Social History Social History (Updated 01/10/23 @ 16:43 by Ernestine Fountain PA-C) Smoking status: Never smoker Exam 2 Narrative: APPEARANCE: Well appearing, no pain, no distress, well-nourished. HEAD: normocephalic, atraumatic. EYES: PERRLA/EOMI, conjunctivae clear. NOSE: Normal no drainage EARS:TMS clear with good light reflex. THROAT: Pharynx clear, no exudate. NECK: Supple. No adenopathy, no masses. RESPIRATORY: Airway patent, respirations nonlabored. Clear to auscultation bilaterally, no rales, rhonchi, wheezing. CARDIOVASCULAR: Regular rate and rhythm without murmurs rubs or gallops. ABDOMINAL: Soft, nontender, nondistended, normal bowel sounds MUSCULOSKELETAL: Moves all extremities. Strength/ROM intact, No edema, No calf tenderness. NEURO: Alert. Cranial nerves II through XII intact. Grossly intact SKIN: Warm, dry. Normal Color Course Vital Signs Vital signs: Vital Signs Pulse Rate 68 08/02/24 07:25 Respiratory Rate 16 08/02/24 07:25 Blood Pressure 157/109 H 08/02/24 07:25 Pulse Oximetry 100 08/02/24 07:25 Temperature 97.8 F 08/02/24 09:31 Pulse Rate 66 08/02/24 09:31 Respiratory Rate 16 08/02/24 09:31 Blood Pressure 132/90 08/02/24 09:31 Pulse Oximetry 100 08/02/24 09:31 Oxygen Delivery Room Air 08/02/24 07:34 Medical Decision Making [facility] Narrative Medical decision making narrative: 44-year-old male with significant history of kidney stones presents emergency department for evaluation for left flank pain. Patient is currently afebrile no leukocytosis hemoglobin 16.4. Patient has normal kidney function. UA was positive for hematuria but negative for infection. CT imaging shows no obstructive uropathy. Patient did pass a large kidney stone in the emergency department. Patient does feel improved. Patient was comfortable the plan for discharge and close follow-up with Urology. Differential Diagnosis Differential Diagnosis: Kidney stones, ureteral calculi, bladder stone, UTI Vital Signs Vital Signs: Vital Signs Pulse Rate 68 08/02/24 07:25 Respiratory Rate 16 08/02/24 07:25 Blood Pressure 157/109 H 08/02/24 07:25 Pulse Oximetry 100 08/02/24 07:25 Temperature 97.8 F 08/02/24 09:31 Pulse Rate 66 08/02/24 09:31 Respiratory Rate 16 08/02/24 09:31 Blood Pressure 132/90 08/02/24 09:31 Pulse Oximetry 100 08/02/24 09:31 Oxygen Delivery Room Air 08/02/24 07:34 Lab Data Lab results reviewed: Yes I reviewed the patient's lab results. 08/02/24 07:31 08/02/24 07:31 Labs: Lab Results 08/02/24 08/02/24 Range/Units 07:31 08:23 WBC 7.7 (4.5-10.0) K/mm3 RBC 5.24 (4.6-6.20) M/mm3 Hgb 16.4 (14.0-18.0) g/dL Hct 47.4 (42.0-52.0) % MCV 90.5 (80-100) fl MCH 31.3 (26-34) pg MCHC 34.6 (32-36) g/dl RDW 12.7 (11.5-14.5) % Plt Count 260 (150-375) k/mm3 MPV 9.7 (7.4-10.4) fl Immature Gran % (Auto) 0.3 (0-0.5) % Neut % (Auto) 48.5 (45.5-73.1) % Lymph % (Auto) 36.7 (18.3-44.2) % Stewart % (Auto) 12.5 H (2.6-8.5) % Eos % (Auto) 1.6 (0-4.4) % Baso % (Auto) 0.4 (0.2-1.2) % Lymph # (Auto) 2.81 (0.9-3.2) K/mm3 Stewart # (Auto) 1.0 H (0.1-0.6) K/mm3 Eos # (Auto) 0.1 (0-0.3) K/mm3 Baso # (Auto) 0.0 (0.0-0.1) K/mm3 Abs Immat Gran (auto) 0.02 (0.00-0.031) K/mm3 Absolute Neuts (auto) 3.7 (1.3-6.7) K/mm3 Absolute Nucleated RBC 0.000 (0.0-0.012) K/mm3 Nucleated RBC % 0.0 (0.0-0.2) % Sodium 139 (137-145) mmol/L Potassium 3.5 (3.4-5.0) mmol/L Chloride 103 (98-107) mmol/L Carbon Dioxide 28 (22-30) mmol/L Anion Gap 8 (4-12) mmol/L BUN 12 (9-20) mg/dL Creatinine 0.88 (0.7-1.3) mg/dL Estim Creat Clear Calc 136 ml/min Estimated GFR > 60 (59 - ) Glucose 138 H (65-110) mg/dL Calcium 8.8 (8.4-10.2) mg/dL Total Bilirubin 0.9 (0.2-1.3) mg/dL AST 40 (17-59) U/L ALT 58 H (6-50) U/L Alkaline Phosphatase 117 (38-126) U/L Total Protein 8.0 (6.3-8.2) g/dL Albumin 4.5 (3.5-5.1) g/dL Urine Color Yellow (Yellow) Urine Appearance Clear (Clear) Urine pH 6.5 (5.0-9.0) Ur Specific [place] 1.012 (1.001-1.035) Urine Protein Negative (Negative) mg/dL Urine Glucose (UA) Negative (Negative) mg/dL Urine Ketones Negative (Negative) mg/dL Ur Blood (Man) 2+ H (Negative) Urine Nitrate Negative (Negative) Urine Bilirubin Negative (Negative) Urine Urobilinogen 1.0 (<2.0) mg/dL Leukocyte Esterase Rfl Negative (Negative) EBONIE/UL Urine RBC 3-5 H (0-2) /hpf Urine WBC 0-5 (0-3) /hpf Ur Squamous Epith Cells None seen (Few) /hpf Urine Bacteria None seen /hpf Urine Casts 0-2 Imaging Data Radiologist's impression: Impressions Abdomen/Pelvis CT 08/02/24 08:22 IMPRESSION: Multiple nonobstructing stones within the bilateral kidneys (as detailed above) without obstructive uropathy. Abdomen X-Ray 08/02/24 08:23 Impression: 1: Left nephrolithiasis. 2: Possible bladder stones. Discharge Plan Discharge Clinical Impression: Kidney stone Patient Disposition: Home, Self-Care Condition: Stable Instructions: Antibiotic Form, Kidney Stones (ED) Additional Instructions: Have close follow-up with Urology as outpatient. If you have any worsening symptoms then please call or return to the emergency department. Patient Language: Moroccan Follow-up/Referrals: Lan Chaudhry MD [Physician] - UNKNOWN,DOCTOR [Primary Care Provider] -
[2024-08-02] MEDS: KETOROLAC 30 MG/ML VIAL (*BKC) IV PUSH (08:21)
[2024-08-02] MEDS: SODIUM CHLORIDE 0.9% IV 1,000 ML 999 ML IV CONT (08:21)
[2024-08-02 08:30] VITALS: BP 138/96; PULSE 66; RESP 16; TEMP 36.6; O2SAT 100
[2024-08-02 08:39] LABS: Add Urine Microscopic? YES; Appearance Urine Clear (Clear); Bacteria Urine None Seen /hpf; Bilirubin Urine Negative (Negative); Blood Urine 2+ (Negative); Color Urine Yellow (Yellow); Glucose Urine UA Negative (Negative); Ketones Urine Negative (Negative); Leukocyte Esterase Ur Negative LEU/UL (Negative); Nitrate Urine Negative (Negative); Non Pathogenic Casts 0-2; Protein Urine Negative (Negative); Specific Grav Ur 1.012 (1.001-1.035); Squamous Epithelial Cell Urine None Seen /hpf (Few); WBC Urine 0-5 /hpf (0-3); pH Urine 6.5 (5.0-9.0)
[2024-08-02 09:31] VITALS: BP 132/90; PULSE 66; RESP 16; TEMP 36.6; O2SAT 100
== END 2024-08-02 09:33 | disposition home or self-care (01) ==
PROVIDERS: Emergency Provider Emergency Medicine
DX: N20.0 Calculus of kidney (principal)
CPT/HCPCS: 36415; 74018; 74176; 80053; 81001; 85025; 96361; 96374; 99284; J1885; J7030